=== PATIENT | female | born 1985 | race Caucasian/White ===

== ENCOUNTER 2019-10-04 20:21 | Emergency (ER) | payer MEDICAID, SELFPAY ==
[2019-10-04 20:27] VITALS: BP 136/94; PULSE 70; RESP 18; TEMP 36.7; O2SAT 100; BMI 36.8
--- NOTE | 2019-10-04 21:01 | PC.NURSE ---
Patient reports that she was cleaning her ears. Patient states that a tip of the Q-tip in your right ear. Patient reports that her daughter attempted to remove it but she believes she pushed it down lower. Patient denies any pain but has a lot of pressure.
--- NOTE | 2019-10-04 21:19 | ED_ITS ---
HPI - Ear Problem General: Chief complaint: Ear Stated complaint: Qtip in ear Time Seen by Provider: 10/04/19 21:02 Source: patient Mode of arrival: ambulatory Limitations: no limitations History of Present Illness: HPI Narrative: Patient comes in for evaluation after breaking a Q-tip off in her right ear canal. Patient appears well. Patient reports some mild discomfort. Associated symptoms: Reports ear or mastoid pain Review of Systems General: Reports: 10 or more systems reviewed and unremarkable except in HPI and below ENMT: Reports: ear pain PFSH ED PFSH: Statuses (acute, chronic, etc) shown below reflect problem list status as previously entered and may not be historically accurate Social History Smoking and tobacco status: never smoked Female Reproductive History: Date of last menstrual period: 09/14/19 Physical Exam Const: COMMON NORMALS: no apparent distress and oriented x3 GENERAL APPEARANCE: cooperative HENMT: COMMON NORMALS: normocephalic, external ears normal, TM's normal bilaterally and external nose normal HEAD & SCALP: normal to inspection and normocephalic FACE & SINUS: normal facial exam NOSE: external nose normal GENERAL EAR: hearing not grossly impaired EXTERNAL EAR: Yes external ears normal EXTERNAL AUDITORY CANAL: EAC abnormal (right ear canal foreign body) TYMPANIC MEMBRANE: TM's normal bilaterally MOUTH: oral and palatal mucosa normal THROAT: posterior oropharynx normal Eye: COMMON NORMALS: PERRL and EOMs intact bilaterally PUPIL: Yes PERRL Neck/C-Spine: COMMON NORMALS: full ROM and no lymphadenopathy Lymph: LYMPHATIC: no lymphedema noted Chest: COMMONS NORMALS: inspection of chest normal and palpation of chest normal Resp: COMMON NORMALS: normal respiratory effort and clear to auscultation bilaterally AUSCULTATION: clear to auscultation bilaterally Cardio: COMMON NORMALS: regular rate and regular rhythm RATE: regular rate RHYTHM: regular rhythm GI: COMMON NORMALS: normal to inspection, nondistended, normoactive bowel sounds and non-tender : COMMON NORMALS: Yes no CVA tenderness BLADDER/KIDNEY EXAM: Yes no CVA tenderness Back/Pelvis: COMMON NORMALS: no CVA tenderness and thoracic and lumbar spine normal to inspection Extremity: COMMON NORMALS: normal to inspection GENERAL: No edema Neuro: COMMON NORMALS: oriented x3, moves all extremities and no focal motor deficits Psych: COMMON NORMALS: mental status grossly normal and cooperative Skin: COMMON NORMALS: no rashes or lesions noted GENERAL SKIN EXAM: no rashes or lesions noted Procedures FB Removal Ear Location: ear canal (R) Foreign Body Suspected: other plastic (Q-tip) TM intact pre-procedure: yes Foreign Body Removed: yes Foreign Body Removal Technique: forceps Tympanic Membrane Intact Post Procedure: Yes Patient Tolerated Procedure: well Complications: none Course Vital Signs: Vital signs: Vital Signs Temperature 98.1 F 10/04/19 20:27 Pulse Rate 70 10/04/19 20:27 Respiratory Rate 18 10/04/19 20:27 Blood Pressure 136/94 10/04/19 20:27 Pulse Oximetry 100 10/04/19 20:27 MDM - Ear MDM Narrative: Medical decision making narrative: Patient comes in for foreign body in her right ear canal. On exam we note a cotton tip applicator piece in her right ear canal. Differential diagnosis includes foreign body in the ear, perforation tympanic membrane, barotrauma. Reviewed exam with patient recommended removal with forceps. Patient tolerated well. Success without any noticeable injury or complication noted. Reviewed post procedure care and need for follow-up. Patient reports understanding. Discharge Plan Discharge Patient Disposition: Home, Self-Care Clinical Impression: Foreign body in right ear, initial encounter Condition: Stable Discharge Orders: Discharge Order (Routine); Ordered 10/04/19 Ordered By: Noel Olivera Referrals: Laurel Conde DO [Primary Care Provider] - Discharge Diet: Usual diet Discharge Activity: Resume usual activity Patient Instructions: Ear Foreign Body (ED) Activity Restrictions/Additional Instructions: Monitor for fever or drainage Return to ER as needed Coding Level of Care Code ED Incident Response Analyst for David Stovall Exam Problem Focused
== END 2019-10-04 21:31 | disposition home or self-care (01) ==
PROVIDERS: Emergency Provider Nurse Practitioner Family; Family Provider Family Medicine; PCP Family Medicine
DX: T16.1XXA Foreign body in right ear, initial encounter (principal); X58.XXXA Exposure to other specified factors, initial encounter
CPT/HCPCS: 69200; 99281; 99282

== ENCOUNTER → 2019-11-21 08:02 | Outpatient (BNVA) | payer MEDICAID, SELFPAY | PROVIDERS: Family Provider Family Medicine; PCP Family Medicine; Visit Provider Specialist | DX: G43.711 Chronic migraine without aura, intractable, with status migrainosus (principal) | CPT/HCPCS: 99213 ==

== ENCOUNTER → 2019-11-28 13:21 | Outpatient (BNVA) | payer MEDICAID, SELFPAY | PROVIDERS: Family Provider Family Medicine; PCP Family Medicine; Visit Provider Anesthesiology | DX: M54.5 Low back pain (principal); M25.552 Pain in left hip; M79.652 Pain in left thigh; Z79.891 Long term (current) use of opiate analgesic | CPT/HCPCS: 99214 ==

== ENCOUNTER → 2019-12-27 09:42 | Outpatient (BNVA) | payer MEDICAID, SELFPAY | PROVIDERS: Family Provider Family Medicine; PCP Family Medicine; Visit Provider Obstetrics & Gynecology | DX: R32 Unspecified urinary incontinence (principal); N93.8 Other specified abnormal uterine and vaginal bleeding | CPT/HCPCS: 80053; 81000; 83001; 84443; 85025 ==

== ENCOUNTER 2020-01-02 13:26 | Emergency (ER) | payer MEDICAID, SELFPAY ==
[2020-01-02 13:33] VITALS: BP 143/101; PULSE 86; RESP 16; TEMP 36.7; O2SAT 95; BMI 37.4
--- NOTE | 2020-01-02 14:04 | W.ED.HA ---
HPI - Headache General: Chief Complaint: Headache Stated Complaint: headache Time Seen by Provider: 01/02/20 13:27 Source: patient Mode of arrival: ambulatory Limitations: no limitations History of Present Illness: HPI Narrative: woke up with ARROYO; increasingly worse. 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 Encounter for long-term (current) use of NSAIDs Encounter for long-term opiate analgesic use GERD (gastroesophageal reflux disease) Low back pain Surgical History H/O section H/O tubal ligation History of cholecystectomy History of D&C History of tonsillectomy Family History Mother Migraine Thyroid condition Grandfather Migraine maternal Father Seizure Son Seizure Social History Smoking and tobacco status: never smoked Alcohol intake: never History of recent travel: No Female Reproductive History: Date of last menstrual period: 09/14/19 Physical Exam Const: COMMON NORMALS: no apparent distress, oriented x3, no limitations and alert GENERAL APPEARANCE: cooperative and comfortable ORIENTATION/CONSCIOUSNESS: Yes awake, Yes oriented to person, Yes oriented to place and Yes oriented to time HENMT: COMMON NORMALS: normocephalic, head/scalp atraumatic, external ears normal, EAC's normal, TM's normal bilaterally and external nose normal HEAD & SCALP: normal to inspection, normocephalic and atraumatic FACE & SINUS: normal facial exam, sinuses nontender and face symmetric NOSE: external nose normal, nares normal and no nasal discharge EXTERNAL EAR: Yes external ears normal EXTERNAL AUDITORY CANAL: EAC's normal TYMPANIC MEMBRANE: TM's normal bilaterally MOUTH: oral and palatal mucosa normal, lip normal and tongue normal THROAT: posterior oropharynx normal, tonsils normal and uvula midline Eye: COMMON NORMALS: PERRL, EOMs intact bilaterally and conjunctivae normal GENERAL EYE: normal appearance of both eyes and normal light reflex EYELID: eyelids normal CONJUNCTIVA: Yes conjunctivae normal PUPIL: Yes PERRL EOM: Yes EOM abnormal DIRECT OPHTHALMOSCOPY: Yes normal light reflex Neck/C-Spine: COMMON NORMALS: full ROM, no lymphadenopathy, supple, no meningeal signs, no JVD and thyroid normal GENERAL: Yes normal visual inspection THYROID: thyroid normal CERVICAL SPINE: Yes cervical ROM normal and Yes normal cervical lordosis Lymph: LYMPHATIC: no lymphadenopathy noted Chest: COMMONS NORMALS: inspection of chest normal and palpation of chest normal Resp: COMMON NORMALS: normal respiratory effort, no retractions and clear to auscultation bilaterally AUSCULTATION: clear to auscultation bilaterally Cardio: COMMON NORMALS: no JVD, regular rate, regular rhythm, S1 normal heart sound, S2 normal heart sound, no gallops, no clicks, no murmurs, no rub and peripheral pulses 2+ throughout RATE: regular rate RHYTHM: regular rhythm HEART SOUNDS: S1 normal and S2 normal PERIPHERAL PULSES: pulses 2+ throughout GI: COMMON NORMALS: normal to inspection, nondistended, normoactive bowel sounds, soft to palpation, non-tender and no masses PALPATION: Yes soft : COMMON NORMALS: Yes no CVA tenderness and Yes external appearance normal BLADDER/KIDNEY EXAM: Yes no CVA tenderness Back/Pelvis: COMMON NORMALS: no CVA tenderness, thoracic and lumbar spine normal to inspection, no thoracic nor lumbar tenderness and thoraco-lumbar ROM normal Extremity: COMMON NORMALS: normal to inspection, full ROM, normal capillary refill, no joint enlargement, no clubbing, cyanosis or edema, no calf tenderness and no pedal edema GENERAL: Yes normal exam except as noted Neuro: COMMON NORMALS: oriented x3, moves all extremities, no focal motor deficits, no sensory deficits noted and gait normal SENSORIUM/ORIENTATION: Yes alert, Yes oriented to person, Yes oriented to place and Yes oriented to time MENINGEAL SIGNS: Yes no meningeal signs Psych: COMMON NORMALS: mental status grossly normal, thought process normal, cooperative, affect normal, speech normal and activity/motor behavior normal SPEECH: Yes normal speech THOUGHT PROCESS: normal thought process Skin: COMMON NORMALS: no rashes or lesions noted, no wounds and skin turgor normal GENERAL SKIN EXAM: no rashes or lesions noted and turgor normal Course ED course: Pt presents to ER with complaints of migraine since waking this am. Migraine cocktail ordered. Will reassess BP once pain is better controlled. No hx of HTN. Reevaluation(s): Reevaluation #1: Headache improved and BP back to baseline of pt and within normal range. Will proceed with DC. Time: 15:37 Vital Signs: Vital signs: Vital Signs Temperature 98.0 F 01/02/20 13:33 Pulse Rate 73 01/02/20 14:59 Respiratory Rate 16 01/02/20 14:59 Blood Pressure 124/85 01/02/20 14:59 Pulse Oximetry 99 01/02/20 14:59 Discharge Plan Discharge Patient Disposition: Home, Self-Care Clinical Impression: Migraine Condition: Stable Prescriptions: No Action acetaminophen-codeine [Tylenol-Codeine #4] 300-60 mg tablet 1 tab PO Q6H PRN (Reason: pain) Qty: 120 RF: 2 Aimovig Autoinjector 140 mg/mL auto-injector See Rx Instructions .ROUTE .COMPLEX RF: 0 dicyclomine 10 mg capsule 10 mg PO QID Qty: 120 RF: 0 omeprazole 20 mg capsule,delayed release(DR/EC) 20 mg PO DAILY Qty: 30 RF: 5 sumatriptan succinate [Imitrex] 100 mg tablet 100 mg PO Q2H PRN (Reason: migraine headache) Qty: 9 RF: 0 oxybutynin chloride 5 mg tablet 5 mg PO BID Qty: 60 RF: 0 Referrals: Laurel Conde DO [Primary Care Provider] - Discharge Diet: Usual diet Discharge Activity: Resume usual activity and Increase activity as tolerated Activity Restrictions/Additional Instructions: Follow up with your PCP as needed. Coding Level of Care Code ED Wine Pasteurizer for David Fwd Exam Comprehensive
[2020-01-02] MEDS: sodium chloride 0.9% 500 ML IV (14:54)
[2020-01-02] MEDS: ondansetron 2 mg/ML SDV 2 mL 4 MG IVP (14:56)
[2020-01-02] MEDS: diphenhydrAMINE 50 mg/mL SDV 1mL 25 MG IVP (14:57)
[2020-01-02] MEDS: dexamethasone 4 mg/mL INJ 8 MG IVP (14:58)
[2020-01-02 14:59] VITALS: BP 124/85; PULSE 73; RESP 16; O2SAT 99
[2020-01-02] MEDS: dihydroergotamine 1 mg/mL Inj IVP (15:13)
[2020-01-02 15:50] VITALS: BP 135/68; PULSE 71; RESP 16; O2SAT 96
== END 2020-01-02 15:50 | disposition home or self-care (01) ==
PROVIDERS: Emergency Provider Nurse Practitioner Family; Family Provider Family Medicine; PCP Family Medicine
DX: G43.909 Migraine, unspecified, not intractable, without status migrainosus (principal); K21.9 Gastro-esophageal reflux disease without esophagitis
CPT/HCPCS: 12345; 96361; 96374; 96375; 99283; J1100; J1110; J1200; J2405; J7040

== ENCOUNTER → 2020-01-04 08:52 | Outpatient (BNVA) | payer MEDICAID, SELFPAY | PROVIDERS: Family Provider Family Medicine; PCP Family Medicine; Visit Provider Specialist | DX: G43.711 Chronic migraine without aura, intractable, with status migrainosus (principal); R32 Unspecified urinary incontinence; N92.0 Excessive and frequent menstruation with regular cycle; N94.10 Unspecified dyspareunia | CPT/HCPCS: 64615; 76830; J0585 ==

== ENCOUNTER 2020-01-24 08:10 | Day surgery (SDC) | payer MEDICAID, SELFPAY ==
[2020-01-23 09:09] VITALS: BMI 37.8
[2020-01-24] VITALS (8 sets, daily range): BP systolic 112–131; BP diastolic 59–89; PULSE 67–81; RESP 12–22; TEMP 36.3–36.6; O2SAT 97–100
--- NOTE | 2020-01-24 08:18 | ANES.PREANE2 ---
Pre-Anesthetic Assessment Pre-Anesthetic Assessment: Height/Weight: Height 1.63 m Weight 99.79 kg Preop Diagnosis: Abnormal uterine bleeding: menorrhagia Proposed Procedure: Operation Date: 01/24/20 09:40 Proposed Procedures p Hysteroscopy w/ Ablation w/ Novasure 79682 N93.9(Not Applicable) - David Wooten MD Familial anesthetic complications: none Was Beta Kymberly taken within 24 hours: N/A Last intake: NPO > 8 hrs Social: Social History: No alcohol and No tobacco Exam: Pre-Anes Outpt Exam: alert, oriented x 3, clear to auscultation bilaterally and regular rate & rhythm Airway: Cervical ROM: WNL MP: 4 Dentition: Full History/ROS: No significant complaints GI: GI: GERD Metabolic: Metabolic: Morbid obesity Neuropsych: Neuropsych: Anxiety and ARROYO Anesthetic Plan: ASA status: 2 Anesthesia: MAC Risk of > 500 ml blood loss (7ml/kg in children): No PFSH Anesthesia PFSH: Medical History Anxiety 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 Encounter for long-term (current) use of NSAIDs Encounter for long-term opiate analgesic use GERD (gastroesophageal reflux disease) Low back pain Surgical History H/O section H/O tubal ligation History of cholecystectomy History of D&C History of tonsillectomy Family History Mother Migraine Thyroid condition Grandfather Migraine maternal Father Seizure Son Seizure Social History (Updated 01/22/20 @ 08:03 by Anna Ramirez RN) Smoking and tobacco status: never smoked Alcohol intake: never History of recent travel: No Female Reproductive History: Date of last menstrual period: 01/15/20 Data Anesthesia Cardiac Studies: No Data to Display
[2020-01-24 08:32] LABS: Add Urine Microscopic? NO
[2020-01-24 08:33] LABS: OR HCG Qualitative Urine Negative (Negative)
[2020-01-24] MEDS: sodium chloride 0.9% 1,000 ML 30 ML IV (09:02)
[2020-01-24 09:06] LABS: Basophils # 0.1 10^3/uL (0.0-0.1); Basophils % 0.7 %; Eosinophils # 0.1 10^3/uL (0.0-0.8); Eosinophils % 1.5 %; Hematocrit 42.8 % (37.0-47.0); Hemoglobin 13.1 g/dL (11.5-15.3); Lymphocytes # 2.1 10^3/uL (0.8-4.8); Lymphocytes % 28.1 %; Mean Corpuscular HGB Conc 30.6 g/dL (30.0-36.0); Mean Corpuscular Hemoglobin 24.1 pg (28.0-34.0); Mean Corpuscular Volume 78.7 fL (81-99); Mean Platelet Volume 10.9 fL (7.4-10.4); Monocytes # 0.6 10^3/uL (0.2-0.9); Monocytes % 7.3 %; Neutrophils # 4.7 10^3/uL (1.8-7.7); Nucleated Red Blood Cells % 0 %; Platelet Count 315 10^3/cmm (130-400); Red Blood Count 5.44 10^6/uL (4.1-5.3); Red Cell Distribution Width 16.2 % (12.1-15.1); White Blood Count 7.6 10^3/uL (4.0-10.0)
[2020-01-24 09:09] LABS: Bilirubin Urine Neg (NEGATIVE); Blood Urine Neg (Negative); Glucose Urine UA Norm (Normal); Ketones Urine Negative (Negative); Leukocyte Esterase Urine Negative (Negative); Nitrate Urine Negative (Negative); Protein Urine Neg (Negative); Urine Appearance Clear (CLEAR); Urine Color Yellow (Yellow); Urobilinogen Urine Norm (Negative); pH Urine 5 (5-7)
[2020-01-24 09:21] LABS: Carbon Dioxide 23 mmol/L (22-29); Chloride 102 mmol/L (98-107); Potassium 4.7 mmol/L (3.5-5.1); Sodium 137 mmol/L (136-145)
[2020-01-24 09:22] LABS: Anion Gap 16.7 (5-19); Blood Urea Nitrogen 13 mg/dL (6-20); Calcium 9.5 mg/dL (8.5-10.5); Creatinine Clr Calc Pharmacy 180.3247; Glomerular Filtration Rate 140.4 mL/min (90-130); Glucose 90 mg/dL (65-115); Osmolality Calculated 280 mOsm/kg (285-295)
[2020-01-24] MEDS: midazolam 1 mg/mL INJ 2 mL 2 MG IVP (10:54)
--- NOTE | 2020-01-24 11:13 | W.PM.OPSUD ---
Surgery/Procedure H&P Update DATE OF PROCEDURE: January 24, 2020 DATE H&P PERFORMED: 01/22/20 H&P UPDATE INFORMATION: I have reviewed H&P completed within last 30 days, I have examined patient prior to procedure and No changes to prior documentation PREOP DIAGNOSIS: Abnormal uterine bleeding: menorrhagia PLANNED PROCEDURE: Operation Date: 01/24/20 09:40 Proposed Procedures p Hysteroscopy w/ Ablation w/ Novasure 91419 N93.9(Not Applicable) - David Wooten MD
--- NOTE | 2020-01-24 12:14 | P.OP_ITS ---
Operative Report Date of procedure: January 24, 2020 Pre-op Diagnosis: Abnormal uterine bleeding: menorrhagia Post-op diagnosis: same Post-op Findings: Proliferative endometrium Procedure Done: Hysteroscopy with D&C. Endometrial ablation Specimens removed/disposition: Endocervical tissue Endometrial tissue Surgeon: David Wooten Anesthesia: General Estimated blood loss (mL): 5 IV fluids (mL): 600 Condition: stable Disposition: PACU Brief History: 34 y/o female with abnormal uterine bleeding unresponsive to medical treatment. Procedure: After informed consent, this is a 34-year-old patient who has completed childbearing; and she has a tubal ligation. The patient desired control for abnormal uterine bleeding. She declined other more conservative options such as oral contraceptive pills and Mirena intrauterine device. The patient desired an ablation. Risks of the surgery, which include risk of infection, bleeding, urine perforation; were discussed in detail with the patient. Patient was also informed that is not advised after having an ablation procedure done. Patient verbalized understanding of the risks, and informed consent was obtained. The patient was taken to the operating room where general anesthesia was administered. The patient was examined under anesthesia and found to have a normal uterus with normal adnexa. She was placed in the dorsal lithotomy position and prepped and draped in sterile fashion. A weighted speculum was placed in the vagina, and the anterior lip of cervix was grasped with the single toothed tenaculum. The uterus was then gently sounded to 10 cm. The length of the cervical canal was 4 cm and the canal was dilated to 8 mm with Sheryl?s dialators. and the 2.7 cm hysteroscope advanced gently to the uterine fundus while visualizing the monitor. Survey of the uterine cavity showed: fundus normal proliferative endometrium; left and right ostiums visualized, anterior wall with proliferative endometrium; and posterior wall with proliferative endometrium; the endocervical canal is normal. No intrauterine lesions noted. The hysteroscope was removed. A curette was advanced gently to the uterine fundus and rotated to clear the uterus. A sharp curettage wan then performed until a gritty texture was noted. There was minimal bleeding noted. The sterile Diagnostic [employer]? Disposable Device package was opened, connected and tested per instructions. It was found to be working properly. The device?s array is completely enclosed by the external sheath and the WIDTH dial reads approximately 0.5 cm. The appropriate cavity length settings was set 6.0 cm. Adjust and lock the cavity length setting feature on the Disposable Device to the value obtained. The Cervical Collar was fully retracted to its proximal position. Confirmed that the cervix was dilated to 8.0 mm. While maintaining a slight traction on the tenaculum to minimize the angle of the uterus. In-line with the axis of the uterus the Disposable Device was inserted transcervically into the uterine cavity and advance the device until the distal end of the sheath touched the fundus. The handles were slowly squeezed up to the point of increased resistance without locking it. The WIDTH dial read 2.5 cm. The Disposable Device handles were slowly squeezed together while gently moving the Disposable Device -0.5 cm to and from the fundus and rotating the handle of the Disposable Device 45? counterclockwise from the vertical plane and 45? clockwise from the vertical plane until the handles locked and confirmed the with dial read greater than 2.5 cm. The Disposable Device was gently moved using anterior, posterior and lateral movements. The Disposable Device was slightly pulled back until the WIDTH dial reading reduced by approximately 0.2-0.5 cm. While holding the tenaculum, the Disposable Device was advance to the fundus, maintaining slight forward pressure. The WIDTH dial read to the previous measurement. The Cervical Collar was slide forward until it forms a seal against the external cervical os. The value indicated on the width dial into the [employer]? RF Controller. In Automatic Mode the Cavity Integrity Assessment (ISADORA) procedure by stepping on the foot switch once was began. The cavity integrity assessment LED signaled the test has passed. The ablation cycle started was after the successful completion of the Cavity Integrity Assessment test. Termination of the ablation was automatic at 33 seconds at 83 rosales power. The Cervical Collar was slide it to its proximal position. The Disposable Device was unlock, holding the front fullerette stationary and pulling the rear handles backwards until the Closed Array indicator reads closed the Disposable Device was withdrawn from the uterine cavity. A hysteroscopy was performed post ablation to confirm therapy it was noted that endometrial cavity had been thoroughly ablated. Prior to this, a sharp curettage was performed, and endometrial curettings were also collected. Patient did have an endometrial biopsy in the office as well, which was negative. The hysteroscope and the tenaculum were removed with goad hemostasis noted. The patient tolerated the procedure well. The patient was taken to the recovery area in stable condition.
--- NOTE | 2020-01-24 12:22 | SUR.PHASEI ---
1220 PATIENT TO PACU AT THIS TIME FROM OR .RR EVEN AND UNLABORED. PLACED ON SIMPLE MASK AT 8L, SPO2 100%.
--- NOTE | 2020-01-24 12:45 | SUR.PHASEI ---
1241 PATIENT TO OPS AT THIS TIME. NO DISTRESS. DENIES PAIN. TOLERATING ICE CHIPS.
== END 2020-01-24 13:23 | disposition home or self-care (01) ==
PROVIDERS: PCP Family Medicine; Visit Provider Obstetrics & Gynecology
PROC: 0U598ZZ Destruction of Uterus, Via Natural or Artificial Opening Endoscopic (ICD-10-PCS; CPT 58563; principal; 2020-01-24 09:40)
DX: N93.9 Abnormal uterine and vaginal bleeding, unspecified (principal); N92.0 Excessive and frequent menstruation with regular cycle; K21.9 Gastro-esophageal reflux disease without esophagitis; E66.01 Morbid (severe) obesity due to excess calories; Z68.37 Body mass index [BMI] 37.0-37.9, adult
CPT/HCPCS: 58563; 12345; 36415; 80048; 81003; 84703; 85025; 86850; 86870; 86900; 86920; 88305; 96365; 96374; J0131; J0690; J2001; J2250; J2704; J3010; J7030

== ENCOUNTER → 2020-02-20 10:59 | Outpatient (BNVA) | payer MEDICAID, SELFPAY | PROVIDERS: PCP Family Medicine; Visit Provider Anesthesiology | DX: M54.42 Lumbago with sciatica, left side (principal); Z79.891 Long term (current) use of opiate analgesic | CPT/HCPCS: 99213; 99214 ==

== ENCOUNTER 2020-03-12 19:44 | Emergency (ER) | payer MEDICAID, SELFPAY ==
--- NOTE | 2020-03-12 19:47 | XR_ITS ---
WS: [id number] RIGHT HAND: 3 VIEW(S) TECHNIQUE: PA, oblique and lateral. HISTORY: injury COMPARISON: None available. No acute fracture or dislocation. No soft tissue or bone abnormality. XR/XR hand RT min 3V* [id number] IMPRESSION: Normal RIGHT hand.
[2020-03-12 19:49] VITALS: BP 144/92; PULSE 89; RESP 18; TEMP 36.6; O2SAT 97; BMI 37.4
[2020-03-12 20:57] VITALS: PULSE 77
--- NOTE | 2020-03-12 21:00 | ED_ITS ---
HPI - Extremity Problem General: Chief complaint: Extremity Injury, Upper Stated complaint: right hand injury Time Seen by Provider: 03/12/20 20:55 Source: patient Mode of arrival: ambulatory Limitations: no limitations History of Present Illness: HPI Narrative: Tanisha is a nice 34-year-old female who comes in complaining of right hand pain. About an hour ago she accidentally caught her hand in between the car door and the frame. She has pain primarily over the carpal bones of her hand. She denies any numbness, tingling or weakness. Patient is refusing to remove her rings as she does not want to damage them and does not want to try to remove them at this time. She denies any pain in the affected areas. Associated symptoms: Deny chest pain, fever(s) or rash Review of Systems Const: Denies: fever(s) Eyes: Denies: change in vision ENMT: Denies: throat pain Card: Denies: chest pain, palpitations, syncope, pre-syncope or dyspnea on exertion Resp: Denies: dyspnea, productive cough or non-productive cough GI: Denies: abdominal pain, nausea, vomiting or diarrhea : Denies: flank pain, dysuria, urinary frequency or urinary urgency Musc: Denies: neck pain or back pain Skin/Breast: Denies: rash or pruritus Neuro: Denies: headache(s), numbness in extremities, weakness in extremities or dizziness Joel/Lymph: Denies: easy bruising or easy bleeding All/Imm: Denies: urticaria PFSH ED PFSH: Medical History Anxiety 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 Encounter for long-term (current) use of NSAIDs Encounter for long-term opiate analgesic use GERD (gastroesophageal reflux disease) Low back pain Surgical History H/O section H/O tubal ligation History of cholecystectomy History of D&C History of tonsillectomy Family History Mother Migraine Thyroid condition Grandfather Migraine maternal Father Seizure Son Seizure Social History Smoking and tobacco status: never smoked Alcohol intake: never Female Reproductive History: Date of last menstrual period: 03/07/20 Physical Exam Const: COMMON NORMALS: no acute distress, patient oriented x3, no limitations, healthy appearing and well nourished GENERAL APPEARANCE: cooperative, well kempt and well developed HENMT: COMMON NORMALS: normocephalic, atraumatic, external ears normal, EAC's normal and Normal external nose present HEAD & SCALP: normal to inspection, normocephalic and atraumatic FACE & SINUS: normal facial exam and face symmetric NOSE: Normal external nose present and Normal nares present EXTERNAL EAR: Yes external ears normal EXTERNAL AUDITORY CANAL: EAC's normal MOUTH: Normal oral and palatal mucosa present, lip normal and tongue normal Eye: COMMON NORMALS: Equal, round and reactive pupils present and conjunctivae normal GENERAL EYE: appearance normal, both eyes and all related structures ALIGNMENT: Yes alignment normal PERIORBITAL: periorbital findings normal EYELID: eyelids normal CONJUNCTIVA: Yes conjunctivae normal SCLERA: sclerae normal PUPIL: Yes Equal, round and reactive pupils present Neck/C-Spine: COMMON NORMALS: full ROM, no lymphadenopathy, supple, no meningeal signs and no JVD GENERAL: Yes normal visual inspection and Yes trachea midline Chest: COMMONS NORMALS: normal inspection of the chest and normal palpation of entire chest wall Resp: COMMON NORMALS: normal respiratory effort, No retractions and No use of accessory muscles EFFORT & INSPECTION: Yes able to speak in complete sentences and Yes symmetric chest movement AUSCULTATION: no crackles, no rales, no rhonchi and no wheezes Cardio: COMMON NORMALS: no JVD, regular rate, regular rhythm, S1 normal heart sound present and S2 normal heart sound present RATE: regular rate RHYTHM: regular rhythm HEART SOUNDS: S1 normal heart sound present, S2 normal heart sound present, no click, no gallops, no murmurs, no rubs and abnormal split S2 GI: COMMON NORMALS: Soft to palpation and No hepatosplenomegaly present PALPATION: Yes Soft to palpation, No Tenderness to palpation present (GI), No Guarding due to palpation present (GI), No Rigid due to palpation, Yes No he patosplenomegaly present, No Hernia present, No Palpable mass present and No Pulsatile mass present : COMMON NORMALS: Yes no CVA tenderness BLADDER/KIDNEY EXAM: Yes no CVA tenderness EXTERNAL FEMALE EXAM: No Hernia present Back/Pelvis: COMMON NORMALS: no CVA tenderness, thoracic and lumbar spine normal to inspection, no thoracic nor lumbar tenderness and thoraco-lumbar ROM normal Extremity: COMMON NORMALS: full ROM, capillary refill normal, no joint enlargement and no calf tenderness NARRATIVE EXTREMITY EXAM: Right hand with mild swelling primarily over the thenar eminence. Patient refuses to remove rings for x-ray. Neurovascular intact to all fingers. Range of motion normal. Neuro: COMMON NORMALS: patient oriented x3, CN's II-XII intact bilaterally, moves all extremities, no focal motor deficits and no sensory deficits noted MENINGEAL SIGNS: Yes no meningeal signs SPEECH: speech normal Psych: COMMON NORMALS: mental status grossly normal, Normal thought process present, cooperative, normal affect, speech normal and activity/motor behavior normal APPEARANCE: Yes well kempt SPEECH: Yes normal speech THOUGHT PROCESS: Normal thought process present Skin: COMMON NORMALS: no rashes or lesions noted, turgor normal, no jaundice, no petechiae and no mottling GENERAL SKIN EXAM: no rashes or lesions noted and turgor normal Course Vital Signs: Vital signs: Vital Signs Temperature 97.9 F 03/12/20 19:49 Pulse Rate 77 03/12/20 20:57 Respiratory Rate 18 03/12/20 19:49 Blood Pressure 144/92 03/12/20 19:49 Pulse Oximetry 97 03/12/20 19:49 MDM - Extremity (Nontraumatic) MDM Narrative: Medical decision making narrative: The patient has refused to remove her rings for the x-ray. She states she has no pain in the affected area. She does have some swelling and I have informed her that if the swelling extends to her fingers it could risk necrosis of her fingers but she refuses to try to remove them or let us remove them. I see no evidence of fracture on her x-ray. I see no sign of compartment syndrome or underlying fracture. She does agree to return if her symptoms worsen but at this time she is satisfied that there are no fractures and would like to go home. The patient was warned but she was also welcomed to return. Discharge Plan Discharge Patient Disposition: Home, Self-Care Clinical Impression: Contusion of hand Qualifiers: Encounter type: initial encounter Laterality: right Qualified Code(s): S60.221A - Contusion of right hand, initial encounter Condition: Stable Prescriptions: No Action dihydroergotamine 0.5 mg/pump act. (4 mg/mL) spray,non-aerosol 1 spray INTRANASAL .at onset of headache RF: 0 dicyclomine 10 mg capsule 10 mg PO QID Qty: 120 RF: 0 omeprazole 20 mg capsule,delayed release(DR/EC) 20 mg PO DAILY Qty: 30 RF: 5 oxybutynin chloride 5 mg tablet 5 mg PO BID Qty: 60 RF: 3 acetaminophen-codeine 300-60 mg tablet 1 tab PO Q6H PRN (Reason: pain) Qty: 120 RF: 2 sumatriptan succinate [Imitrex] 100 mg tablet 100 mg PO Q2H PRN (Reason: migraine headache) Qty: 9 RF: 4 Discharge Orders: Discharge Order (Routine); Ordered 03/12/20 Ordered By: Fide Antunez Referrals: Laurel Conde DO [Primary Care Provider] - Quentin Walter MD [Physician] - 1-3 days Discharge Diet: Usual diet Discharge Activity: Limit activity as instructed Patient Instructions: Contusion in Adults (ED) Activity Restrictions/Additional Instructions: Please return to the ER immediately for any of the signs or symptoms listed on your discharge instruction sheets, worsening/changing of your symptoms, you are not getting better as quickly as expected, or for ANY other cause or concerns. I have recommended we remove your ratings but you have declined, if you develop pain, increased swelling or have any concerns you are encouraged and more than welcome to return to the ER for further evaluation and care including removal of your rings. Keep your hand elevated and apply ice 3-4 times a day but do not apply ice directly to the skin. If we have missed anything on your x-rays you will be notified within 24 hours and we will have you return to the ER for reevaluation. Be certain to use your splint at all times. Take Tylenol at home for pain. Discharge Date/Time: 03/12/20 21:18 Coding Level of Care Code ED Articulation Officer for Francisc[facility] Fwd Exam Comprehensive
== END 2020-03-12 21:18 | disposition home or self-care (01) ==
PROVIDERS: Emergency Provider Emergency Medicine; PCP Family Medicine
DX: S60.221A Contusion of right hand, initial encounter (principal); W23.0XXA Caught, crushed, jammed, or pinched between moving objects, initial encounter
CPT/HCPCS: 12345; 29125; 73130; 99281; 99283

== ENCOUNTER → 2020-03-28 09:16 | Outpatient (BNVA) | payer MEDICAID, SELFPAY | PROVIDERS: Family Provider Family Medicine; PCP Family Medicine; Visit Provider Specialist | DX: G43.711 Chronic migraine without aura, intractable, with status migrainosus (principal) | CPT/HCPCS: 64615; J0585 ==

== ENCOUNTER → 2020-05-14 11:49 | Outpatient (BNVA) | payer MEDICAID, SELFPAY | PROVIDERS: Family Provider Family Medicine; PCP Family Medicine; Visit Provider Nurse Practitioner Family | DX: R50.9 Fever, unspecified (principal); Z20.828 Contact with and (suspected) exposure to other viral communicable diseases | CPT/HCPCS: 87635 ==

== ENCOUNTER → 2020-05-21 10:32 | Outpatient (BNVA) | payer MEDICAID, SELFPAY | PROVIDERS: Family Provider Family Medicine; PCP Family Medicine; Visit Provider Family Medicine | DX: E55.9 Vitamin D deficiency, unspecified (principal); Z86.39 Personal history of other endocrine, nutritional and metabolic disease; K21.9 Gastro-esophageal reflux disease without esophagitis; Z68.38 Body mass index [BMI] 38.0-38.9, adult; Z71.89 Other specified counseling | CPT/HCPCS: 82306 ==

== ENCOUNTER → 2020-06-04 09:42 | Outpatient (BNVA) | payer MEDICAID, SELFPAY | PROVIDERS: PCP Family Medicine; Visit Provider Nurse Practitioner | DX: M54.42 Lumbago with sciatica, left side (principal); Z79.891 Long term (current) use of opiate analgesic | CPT/HCPCS: 99213 ==

== ENCOUNTER → 2020-06-05 15:46 | Outpatient (BNVA) | payer MEDICAID, SELFPAY | PROVIDERS: PCP Family Medicine; Visit Provider Obstetrics & Gynecology | DX: N93.9 Abnormal uterine and vaginal bleeding, unspecified (principal) | CPT/HCPCS: 76830 ==

== ENCOUNTER → 2020-06-25 09:02 | Outpatient (BNVA) | payer MEDICAID, SELFPAY | PROVIDERS: PCP Family Medicine; Visit Provider Family Medicine | DX: E55.9 Vitamin D deficiency, unspecified (principal); Z86.39 Personal history of other endocrine, nutritional and metabolic disease; K21.9 Gastro-esophageal reflux disease without esophagitis | CPT/HCPCS: 82306 ==

== ENCOUNTER → 2020-07-25 10:04 | Outpatient (BNVA) | payer MEDICAID, SELFPAY | PROVIDERS: PCP Family Medicine; Visit Provider Specialist | DX: G43.711 Chronic migraine without aura, intractable, with status migrainosus (principal) | CPT/HCPCS: 64615; J0585 ==

== ENCOUNTER → 2020-08-28 09:07 | Outpatient (BNVA) | payer MEDICAID, SELFPAY | PROVIDERS: PCP Family Medicine; Visit Provider Nurse Practitioner | DX: M54.5 Low back pain (principal); Z79.891 Long term (current) use of opiate analgesic | CPT/HCPCS: 99213 ==

== ENCOUNTER → 2020-09-04 09:47 | Outpatient (BNVA) | payer MEDICAID, SELFPAY | PROVIDERS: PCP Family Medicine; Visit Provider Family Medicine | DX: L30.1 Dyshidrosis [pompholyx] (principal); G25.81 Restless legs syndrome | CPT/HCPCS: 82728; 83550; 85025 ==

== ENCOUNTER → 2020-10-17 10:13 | Outpatient (BNVA) | payer BC, MEDICAID, SELFPAY | PROVIDERS: PCP Family Medicine; Visit Provider Specialist | DX: G43.711 Chronic migraine without aura, intractable, with status migrainosus (principal) | CPT/HCPCS: 64615; J0585 ==

== ENCOUNTER 2020-11-07 07:56 | Emergency (ER) | payer BC, MEDICAID, SELFPAY ==
[2020-11-07 07:57] VITALS: BP 131/95; PULSE 92; RESP 18; TEMP 36.6; O2SAT 97; BMI 36.0
--- NOTE | 2020-11-07 08:00 | W.ED.ALLEREA ---
HPI - Allergic Reaction General: Chief complaint: Allergic Reaction Stated complaint: POSS ALLERGIC REACTION/FACE SWELLING Time Seen by Provider: 11/07/20 07:57 Source: patient Mode of arrival: ambulatory Limitations: no limitations History of Present Illness: HPI narrative: Patient is a 35-year-old female here for evaluation of a possible allergic reaction with facial swelling. Patient tells me last night she had a migraine and took her Imitrex. She states that did not alleviate her headache so she then took her stronger medication that she has for her migraine. She states a few hours later she began noticing facial swelling. 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 Patient states she took Pepcid and Benadryl last night without much relief. She states this morning she began feeling like her throat was scratchy so decided to come into the emergency department for evaluation. Patient denies difficulty breathing or trouble swallowing. No rash. Patient has taken both of these medications previously without reaction. complaint: allergic reaction and facial swelling Onset (ago): hour(s) Exposure: unknown and medication (possibly ) Associated symptoms: Deny nausea or vomiting Severity: mild Treatment prior to arrival: benadryl (last night) Previous Allergic Reaction History: angioedema Review of Systems Const: Denies: fever(s), chills, body aches, fatigue or malaise Eyes: Denies: change in vision, blurry vision, photophobia, floaters or seeing flashes ENMT: Reports: other (reports facial swelling); Denies: throat pain, odynophagia, oral sores, disequilibrium, nasal discharge, nasal congestion or sinus pain Card: Denies: chest pain, palpitations, irregular heart rhythm, edema, swelling of feet/ankles, lightheadedness, syncope, pre-syncope, dyspnea on exertion or orthopnea Resp: Denies: dyspnea GI: Denies: nausea or vomiting Musc: Denies: neck pain, back pain, extremity pain, extremity swelling, joint pain or joint swelling Skin/Breast: Denies: rash Neuro: Denies: headache(s), numbness in extremities, weakness in extremities or sensory changes PFSH ED PFSH: Medical History Anxiety 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 Encounter for long-term (current) use of NSAIDs Encounter for long-term opiate analgesic use GERD (gastroesophageal reflux disease) History of hysteroscopy Hysteroscopy with D&C on 01/24/2020- performed by Dr. Wooten at [facility] Low back pain Status post hysteroscopy (01/24/20) [place], [place]. Dr. David Wooten. Pre-op Diagnosis: Abnormal uterine bleeding: menorrhagia Post-op diagnosis: same Post-op Findings: Proliferative endometrium Procedure Done: Hysteroscopy with D&C. Endometrial ablation Surgical History H/O section H/O tubal ligation History of cholecystectomy History of D&C History of tonsillectomy Family History Mother Migraine Thyroid condition Grandfather Migraine maternal Father Seizure Son Seizure Social History Smoking and tobacco status: never smoked Alcohol intake: never History of recent travel: No Female Reproductive History: Date of last menstrual period: 03/07/20 Physical Exam Const: COMMON NORMALS: no acute distress, average body habitus, patient oriented x3, no limitations, healthy appearing, alert and well nourished GENERAL APPEARANCE: cooperative ORIENTATION/CONSCIOUSNESS: Yes awake, Yes oriented to person, Yes oriented to place and Yes oriented to time HENMT: COMMON NORMALS: normocephalic, atraumatic, hearing grossly normal bilaterally, external ears normal, EAC's normal, TM's normal bilaterally, Normal external nose present, Normal nasal mucous membranes and turbinates present, moist oral mucous membranes, oropharynx normal, dentition normal and gingiva normal HEAD & SCALP: normal to inspection, normocephalic and atraumatic FACE & SINUS: sinuses nontender and other (mild facial swelling) NOSE: Normal external nose present and Normal nasal mucous membranes and turbinates present EXTERNAL EAR: Yes external ears normal EXTERNAL AUDITORY CANAL: EAC's normal TYMPANIC MEMBRANE: TM's normal bilaterally MOUTH: Normal oral and palatal mucosa present, lip normal and tongue normal THROAT: posterior oropharynx normal, tonsils normal and uvula midline OTHER: no lip, tongue, or intraoral swelling Eye: COMMON NORMALS: Equal, round and reactive pupils present and EOMs intact bilaterally GENERAL EYE: appearance normal, both eyes and all related structures PUPIL: Yes Equal, round and reactive pupils present Neck/C-Spine: COMMON NORMALS: full ROM, no lymphadenopathy and no meningeal signs Resp: COMMON NORMALS: normal respiratory effort and clear to auscultation bilaterally AUSCULTATION: clear to auscultation bilaterally Cardio: COMMON NORMALS: regular rate and regular rhythm RATE: regular rate RHYTHM: regular rhythm Neuro: PRESTON COMA SCALE: document GCS findings [place] coma scale eye opening: Spontaneous [place] coma scale verbal response: Orientated [place] coma scale motor response: Obey commands [place] coma scale total score: 15 COMMON NORMALS: patient oriented x3, CN's II-XII intact bilaterally, moves all extremities, no focal motor deficits, no sensory deficits noted and gait normal SENSORIUM/ORIENTATION: Yes alert, Yes oriented to person, Yes oriented to place and Yes oriented to time MENINGEAL SIGNS: Yes no meningeal signs Skin: COMMON NORMALS: no rashes or lesions noted GENERAL SKIN EXAM: no rashes or lesions noted Course Vital Signs: Vital signs: Vital Signs Temperature 97.9 F 11/07/20 07:57 Pulse Rate 82 11/07/20 08:55 Respiratory Rate 22 H 11/07/20 08:55 Blood Pressure 118/86 11/07/20 08:55 Pulse Oximetry 98 11/07/20 08:55 MDM - Allergic Reaction MDM Narrative: Medical decision making narrative: Patient feeling better after meds. No signs/symptoms of anaphylaxis. She is stable for DC with return to ED precautions. Discharge Plan Discharge Patient Disposition: Home Clinical Impression: Allergic reaction Qualifiers: Encounter type: initial encounter Qualified Code(s): T78.40XA - Allergy, unspecified, initial encounter Condition: Stable Prescriptions: No Action dihydroergotamine 0.5 mg/pump act. (4 mg/mL) spray,non-aerosol 1 spray INTRANASAL .at onset of headache RF: 0 medroxyprogesterone [Depo-Provera] 150 mg/mL suspension 150 mg IM .every 3 months Qty: 1 RF: 3 tizanidine 4 mg tablet 4 mg PO BID PRN (Reason: muscle spasticity) 30 Days Qty: 60 RF: 2 acetaminophen-codeine 300-60 mg tablet 1 tab PO Q6H PRN (Reason: pain) Qty: 120 RF: 2 triamcinolone acetonide 0.1 % cream 1 applic topical BID Qty: 453.6 RF: 0 omeprazole 40 mg capsule,delayed release(DR/EC) 40 mg PO DAILY Qty: 90 RF: 1 sumatriptan succinate [Imitrex] 100 mg tablet 100 mg PO Q2H PRN (Reason: migraine headache) Qty: 9 RF: 1 Discharge Orders: Discharge ED (Routine); Ordered 11/07/20 Ordered By: Nicki De Referrals: Laurel Conde DO [Primary Care Provider] - Patient Instructions: Allergic Reaction, Anaphylaxis (ED), Angioedema (ED) Activity Restrictions/Additional Instructions: Please return to the emergency department for worsening swelling, tongue/lip swelling, difficulty breathing, difficulty swallowing, difficulty controlling your saliva, or any other concerns you may have. Coding Level of Care Code ED Spool Sander for Franciscog Fwd Exam Comprehensive
[2020-11-07 08:09] VITALS: O2SAT 98
[2020-11-07] MEDS: famotidine 20 mg/2 mL INJ 40 MG IVP (08:25)
[2020-11-07] MEDS: diphenhydrAMINE 50 mg/mL SDV 1mL IVP (08:25)
[2020-11-07 08:55] VITALS: BP 118/86; PULSE 82; RESP 22; O2SAT 98
[2020-11-07 09:36] VITALS: BP 113/88; PULSE 71; RESP 16; O2SAT 97
== END 2020-11-07 09:37 | disposition home or self-care (01) ==
PROVIDERS: Emergency Provider Physician Assistant; PCP Family Medicine
DX: T78.40XA Allergy, unspecified, initial encounter (principal)
CPT/HCPCS: 96374; 96375; 99283; J1200; J2930; J3490

== ENCOUNTER → 2020-11-13 09:32 | Outpatient (BNVA) | payer BC, MEDICAID, SELFPAY | PROVIDERS: PCP Family Medicine; Visit Provider Anesthesiology | DX: G89.29 Other chronic pain (principal); M54.42 Lumbago with sciatica, left side; Z79.891 Long term (current) use of opiate analgesic | CPT/HCPCS: 99213 ==

== ENCOUNTER → 2020-11-15 12:33 | Outpatient (BNVA) | payer BC, MEDICAID, SELFPAY | PROVIDERS: PCP Family Medicine; Visit Provider Obstetrics & Gynecology | DX: N93.9 Abnormal uterine and vaginal bleeding, unspecified (principal) | CPT/HCPCS: 87635 ==

== ENCOUNTER 2020-11-20 12:20 | Observation (INO) | payer BC, MEDICAID, SELFPAY ==
[2020-11-18 10:37] VITALS: BMI 36.0
[2020-11-18 11:12] LABS: Basophils # 0.1 10^3/uL (0.0-0.1); Eosinophils # 0.1 10^3/uL (0.0-0.8); Eosinophils % 1.2 %; Hematocrit 43.9 % (37.0-47.0); Hemoglobin 13.9 g/dL (11.5-15.3); Lymphocytes # 1.5 10^3/uL (0.8-4.8); Lymphocytes % 29.6 %; Mean Corpuscular HGB Conc 31.7 g/dL (30.0-36.0); Mean Corpuscular Hemoglobin 24.9 pg (28.0-34.0); Mean Corpuscular Volume 78.7 fL (81-99); Mean Platelet Volume 10.3 fL (7.4-10.4); Monocytes # 0.4 10^3/uL (0.2-0.9); Neutrophils # 3.16 10^3/uL (1.8-7.7); Nucleated Red Blood Cells % 0 %; Platelet Count 255 10^3/cmm (130-400); Red Blood Count 5.58 10^6/uL (4.1-5.3); Red Cell Distribution Width 16.4 % (12.1-15.1); White Blood Count 5.2 10^3/uL (4.0-10.0)
[2020-11-18 11:22] LABS: Add Urine Microscopic? YES; Bacteria Urine 1+ /hpf; Bilirubin Urine Neg (Negative); Blood Urine Neg (Negative); Glucose Urine UA Norm (Normal); Ketones Urine Negative (Negative); Leukocyte Esterase Urine Negative (Negative); Nitrate Urine Negative (Negative); Protein Urine Neg (Negative); RBC Urine 0-4 /hpf (0-2); Specific Gravity, Urine 1.025 (1.005-1.030); Urine Appearance Cloudy (CLEAR); Urine Color Yellow (Yellow); Urobilinogen Urine Norm (Negative); WBC Urine 0-4 /hpf (0-5); pH Urine 5 (5-7)
[2020-11-18 11:23] LABS: OR HCG Qualitative Urine Negative (Negative)
[2020-11-18 11:31] LABS: Alanine Aminotransferase 20 U/L (0-33); Albumin Level 4.2 g/dL (3.5-5.2); Alkaline Phosphatase 103 IU/L (35-105); Anion Gap 12.8 (5-19); Aspartate Amino Transferase 17 U/L (0-32); Blood Urea Nitrogen 11 mg/dL (6-20); Calcium 9.2 mg/dL (8.5-10.5); Carbon Dioxide 21 mmol/L (22-29); Chloride 103 mmol/L (98-107); Globulin 3.2 g/dL (1.3-4.6); Glomerular Filtration Rate 113.1 mL/min (90-130); Glucose 97 mg/dL (65-115); Osmolality Calculated 275 mOsm/kg (285-295); Potassium 3.8 mmol/L (3.5-5.1); Sodium 133 mmol/L (136-145); Total Bilirubin 0.5 mg/dL (0.15-1.2); Total Protein 7.4 g/dL (6.6-8.7)
--- NOTE | 2020-11-18 11:56 | ANES.PREANE2 ---
Pre-Anesthetic Assessment Pre-Anesthetic Assessment: Height/Weight: Height 1.63 m Weight 95.254 kg Preop Diagnosis: Abnormal uterine bleeding, chronic pelvic pain Proposed Procedure: Operation Date: 11/20/20 09:00 Proposed Procedures p Laparoscopic Assist Vaginal Hystectomy 31091 n93.9(Not Applicable) - David Wooten MD Was Beta Kymberly taken within 24 hours: N/A Was Clonidine taken within 24 hours: N/A Social: Social History: No alcohol and No tobacco Exam: Pre-Anes Outpt Exam: alert, oriented x 3, clear to auscultation bilaterally and regular rate & rhythm Airway: Submandibular: WNL Cervical ROM: WNL MP: 2 Dentition: Full GI: GI: GERD Metabolic: Metabolic: Morbid obesity Musc/skel: Musc/skel: Lower Back Pain (Chronic pain/opioid) Neuropsych: Neuropsych: Anxiety Anesthetic Plan: ASA status: 2 Anesthesia: General Risk of > 500 ml blood loss (7ml/kg in children): No PFSH Anesthesia PFSH: Medical History Anxiety 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 Chronic low back pain Encounter for long-term (current) use of NSAIDs Encounter for long-term opiate analgesic use GERD (gastroesophageal reflux disease) History of hysteroscopy Hysteroscopy with D&C on 01/24/2020- performed by Dr. Wooten at [facility] Low back pain Status post hysteroscopy (01/24/20) [facility], [place], [place]. Dr. David Wooten. Pre-op Diagnosis: Abnormal uterine bleeding: menorrhagia Post-op diagnosis: same Post-op Findings: Proliferative endometrium Procedure Done: Hysteroscopy with D&C. Endometrial ablation Surgical History H/O section H/O tubal ligation History of cholecystectomy History of D&C History of tonsillectomy Family History (Updated 11/18/20 @ 08:19 by Anna Ramirez, DIOMEDES) Mother Migraine Thyroid condition Grandfather Migraine maternal Father Seizure Son Seizure Sister Heart disease Grandmother Ovarian cancer paternal, 50's Denies family history of Colon cancer Diabetes Clotting disorder Hyperlipidemia Breast cancer Anesthesia complication Bleeding disorder Hypertension Uterine cancer Stroke Social History (Updated 03/15/21 @ 08:18 by Anna Ramirez RN) Smoking and tobacco status: never smoked Alcohol intake: never Substance/Drug Use: never History of recent travel: No Female Reproductive History: Date of last menstrual period: 08/09/20 Data Anesthesia CBC & Chem 7: 11/18/20 10:50 11/18/20 10:50 Other Labs: Laboratory Results - last 48 hr 11/18/20 11/18/20 11/18/20 10:50 10:50 10:50 WBC 5.2 RBC 5.58 H Hgb 13.9 Hct 43.9 MCV 78.7 L MCH 24.9 L MCHC 31.7 RDW 16.4 H Plt Count 255 MPV 10.3 Neut % (Auto) 61.0 Lymph % (Auto) 29.6 [place] % (Auto) 7.0 Eos % (Auto) 1.2 Baso % (Auto) 1.0 Neut # (Auto) 3.16 Lymph # (Auto) 1.5 [place] # (Auto) 0.4 Eos # (Auto) 0.1 Baso # (Auto) 0.1 Nucleated RBC % (auto) 0 Nucleated RBCs # 0.0 Sodium Potassium Chloride Carbon Dioxide Anion Gap BUN Creatinine GFR Calculation Glucose Calculated Osmolality Calcium Total Bilirubin AST ALT Alkaline Phosphatase Total Protein Albumin Globulin Urine Color Yellow Urine Appearance Cloudy Urine pH 5 Ur Specific [place] 1.025 Urine Protein Neg Urine Glucose (UA) Norm Urine Ketones Negative Urine Blood Neg Urine Nitrate Negative Urine Bilirubin Neg Urine Urobilinogen Norm Ur Leukocyte Esterase Negative Urine RBC 0-4 H Urine WBC 0-4 H Ur Squamous Epith Cells 10-15 H Amorphous Sediment Not Reportable Urine Bacteria 1+ H Urine HCG, Qual Negative 11/18/20 10:50 WBC RBC Hgb Hct MCV MCH MCHC RDW Plt Count MPV Neut % (Auto) Lymph % (Auto) [place] % (Auto) Eos % (Auto) Baso % (Auto) Neut # (Auto) Lymph # (Auto) [place] # (Auto) Eos # (Auto) Baso # (Auto) Nucleated RBC % (auto) Nucleated RBCs # Sodium 133 L Potassium 3.8 Chloride 103 Carbon Dioxide 21 L Anion Gap 12.8 BUN 11 Creatinine 0.6 GFR Calculation 113.1 Glucose 97 Calculated Osmolality 275 L Calcium 9.2 Total Bilirubin 0.5 AST 17 ALT 20 Alkaline Phosphatase 103 Total Protein 7.4 Albumin 4.2 Globulin 3.2 Urine Color Urine Appearance Urine pH Ur Specific [place] Urine Protein Urine Glucose (UA) Urine Ketones Urine Blood Urine Nitrate Urine Bilirubin Urine Urobilinogen Ur Leukocyte Esterase Urine RBC Urine WBC Ur Squamous Epith Cells Amorphous Sediment Urine Bacteria Urine HCG, Qual Cardiac Studies: No Data to Display
[2020-11-20] VITALS (20 sets, daily range): BP systolic 101–139; BP diastolic 65–109; PULSE 61–96; RESP 10–22; TEMP 36.7–37.3; O2SAT 95–100; BMI 36.0
--- NOTE | 2020-11-20 07:51 | P.ANESUD_ITS ---
Pre-Anesthetic Update Pre-Anesthetic Assessment: Date of Surgery/Procedure: 11/20/20 Preop Narcisa gnosis: Abnormal uterine bleeding, chronic pelvic pain Proposed Procedure: Operation Date: 11/20/20 08:40 Proposed Procedures p Laparoscopic Assist Vaginal Hystectomy [id number] n93.9(Not Applicable) - David Wooten MD Any changes to Pre-Anesthetic Assessment?: No Labs Last 48hrs: Laboratory Results - last 48 hr 11/18/20 11/18/20 11/18/20 10:50 10:50 10:50 WBC 5.2 RBC 5.58 H Hgb 13.9 Hct 43.9 MCV 78.7 L MCH 24.9 L MCHC 31.7 RDW 16.4 H Plt Count 255 MPV 10.3 Neut % (Auto) 61.0 Lymph % (Auto) 29.6 [place] % (Auto) 7.0 Eos % (Auto) 1.2 Baso % (Auto) 1.0 Neut # (Auto) 3.16 Lymph # (Auto) 1.5 [place] # (Auto) 0.4 Eos # (Auto) 0.1 Baso # (Auto) 0.1 Nucleated RBC % (a uto) 0 Nucleated RBCs # 0.0 Sodium Potassium Chloride Carbon Dioxide Anion Gap BUN Creatinine GFR Calculation Glucose Calculated Osmolal ity Calcium Total Bilirubin AST ALT Alkaline Phosphata se Total Protein Albumin Globulin Urine Color Yellow Urine Appearance Cloudy Urine pH 5 Ur Specific Gravit y 1.025 Urine Protein Neg Urine Glucose (UA) Norm Urine Ketones Negative Urine Blood Neg Urine Nitrate Negative Urine Bilirubin Neg Urine Urobilinogen Norm Ur Leukocyte Chen ase Negative Urine RBC 0-4 H Urine WBC 0-4 H Ur Squamous Epith Cells 10-15 H Amorphous Sediment Not Reportable Urine Bacteria 1+ H Urine HCG, Qual Negative Blood Type Rho(D) Type Antibody Screen Antibody Identific ation Crossmatch 11/18/20 11/18/20 10:50 10:50 WBC RBC Hgb Hct MCV MCH MCHC RDW Plt Count MPV Neut % (Auto) Lymph % (Auto) [place] % (Auto) Eos % (Auto) Baso % (Auto) Neut # (Auto) Lymph # (Auto) [place] # (Auto) Eos # (Auto) Baso # (Auto) Nucleated RBC % (a uto) Nucleated RBCs # Sodium 133 L Potassium 3.8 Chloride 103 Carbon Dioxide 21 L Anion Gap 12.8 BUN 11 Creatinine 0.6 GFR Calculation 113.1 Glucose 97 Calculated Osmolal ity 275 L Calcium 9.2 Total Bilirubin 0.5 AST 17 ALT 20 Alkaline Phosphata se 103 Total Protein 7.4 Albumin 4.2 Globulin 3.2 Urine Color Urine Appearance Urine pH Ur Specific Gravit y Urine Protein Urine Glucose (UA) Urine Ketones Urine Blood Urine Nitrate Urine Bilirubin Urine Urobilinogen Ur Leukocyte Chne ase Urine RBC Urine WBC Ur Squamous Epith Cells Amorphous Sediment Urine Bacteria Urine HCG, Qual Blood Type O Positive Rho(D) Type Positive / 4+ Antibody Screen Positive Antibody Identific ation Anti-c Crossmatch See Detail Exam: Pre-Anes Outpt Exam: alert, oriented x 3, clear to auscultation bilaterally and regular rate & rhythm Cardiac Studies: No Data to Display
[2020-11-20] MEDS: sodium chloride 0.9% 500 ML IV (08:00)
[2020-11-20] MEDS: enoxaparin 30 mg/0.3 mL Syringe SUBCUT (08:12)
[2020-11-20] MEDS: scopolamine 1.5 Patch 1 PATCH TRANSDERMA (08:12)
[2020-11-20] MEDS: sodium chloride 0.9% 1,000 ML 30 ML IV (08:33)
--- NOTE | 2020-11-20 09:32 | W.PM.OPSUD ---
Surgery/Procedure H&P Update DATE OF PROCEDURE: November 20, 2020 DATE H&P PERFORMED: 01/22/20 H&P UPDATE INFORMATION: I have reviewed H&P completed within last 30 days, I have examined patient prior to procedure and No changes to prior documentation PREOP DIAGNOSIS: Abnormal uterine bleeding, chronic pelvic pain PLANNED PROCEDURE: Operation Date: 11/20/20 08:40 Proposed Procedures p Laparoscopic Assist Vaginal Hystectomy [id number] n93.9(Not Applicable) - David Wooten MD
[2020-11-20] MEDS: ceFOXitin 2,000 MG in sodium chloride 0.9% (plus) 50 ML 100 MG IV (10:00)
--- NOTE | 2020-11-20 10:49 | SUR.OPER ---
notified of surgical start and progress
--- NOTE | 2020-11-20 11:48 | P.OP_ITS ---
Operative Report Date of procedure: November 20, 2020 Pre-op Diagnosis: Abnormal uterine bleeding, chronic pelvic pain Post-op diagnosis: same Post-op Findings: Enlarged uterus, adhesions Procedure Done: Laparoscopic-assisted vaginal hysterectomy. Lysis of adhesions. Cystoscopy Specimens removed/disposition: Uterus Surgeon: David Wooten MD Anesthesia: General Estimated blood loss (mL): 250 IV fluids (mL): 1,500 Urine output (mL): 300 Complications: None Condition: stable Disposition: PACU Brief History: 35-year-old female with a history of chronic pelvic pain and abnormal uterine bleeding unresponsive to medical management. Procedure: After informed consent, the patient was taken to the operating room where general anesthesia was administered. Pre-Procedure Time-Out verifying the correct patient identity, correct procedure verified with consent, correct site and side, correct patient position, availability of correct implants and any special equipment or requirements was performed and acknowledge by the OR team. She was placed in the dorsal lithotomy position and prepped and draped in sterile fashion. The patient was examined under anesthesia and found to have a normal uterus with normal adnexa. A Dean catheter was placed in the bladder. A weighted speculum was placed in the vagina, and the anterior lip of cervix was grasped with the single toothed tenaculum. A uterine manipulator was advanced into the endocervical. Tenaculum was removed after uterine manipulator was secured. The speculum was removed from the vagina. The attention was brought to abdomen after changing gloves. The base of the umbilicus was grasped with an Allis clamp and with 2 towel clamp bilaterally tenting up the umbilicus an intraumbilical incision was made with a scalpel. While tenting up on the abdom en, a Verres needle with sleeve was admitted into the intra-abdominal cavity. A saline drop test was performed and noted to be within normal limits. Pneumoperitoneum was attained with 4 liters of carbon dioxide. The Verres needle was removed. Then a 5 mm Optiview trocar and cannula were inserted under direct visualization without complications. Trocars were removed and the laparoscope was inserted and connected to the video camera light source. A 5 mm trocar and cannula were placed in the right lower quadrant under direct visualization after infiltration of 0.5% Marcaine with epinephrine. A 5 mm trocar and cannula were placed in the left lower quadrant under direct visualization after infiltration of 0.5% Marcaine with epinephrine. The pelvic contents were visualized and noted a small uterus, deep cul-de-sac, normal bilateral fallopian tubes and ovaries, normal appendix, and both ureters were identified crossing the pelvic brim and pelvic sidewall. The left round ligament was coagulated and transected using Voyant device. The left broad ligament was opened down to the level of the uterine artery and vein. The left tubovarian mesosalpinx ligament was coagulated using Voyant and then transected. The right round ligament was coagulated and transected using Voyant, and the right broad ligament was opened down to the level of the right uterine artery and vein. The right tubovarian mesosalpinx ligament was coagulated and transected using Voyant. Peritoneum of the lower uterine segment was entered using Voyant device, and the bladder was dissected off the lower uterine segment using blunt dissection. And adhesions to the anterior abdominal wall were lysed with the Voyant device. Careful inspection revealed complete hemostasis. The vaginal Bookwalter self retaining r etractor was placed in the vagina with the bilatral right-angle retractor used to visualize the cervix. The cervix was grasped across the anterior lip with a single-toothed tenaculum and circumferentially infiltrated with 1% Xylocaine with epinephrine at this time. The cervix was circumferentially excised with the scalpel. The vaginal mucosa was dissected superiorly with sharp dissection. The anterior peritoneal reflection was identified, and it was entered with Metzenbaum scissors. A posterior colpotomy was made through the cul-de-sac space. The posterior peritoneum was identified in similar fashion and Metzenbaum scissors were used to enter the cul-de-sac. At this time, the inferior curved badle of the self-retaining vaginal retractor was reposition and advanced posteriorly into the cul-de-sac. At this time, the left and right uterosacral ligaments were isolated and ligated with 0 Vicryl. The Enseal device was then used in a serial fashion up through the cardinal ligaments bilaterally. Finally, the uterine arteries were cross-clamped, cut, and ligated with the Enseal device. Enseal device was then used up through the broad ligaments superiorly and finally the uterus was rotated posteriorly. The left and right tubes were then cross-clamped and ligated with Enseal device. The uterus was excised and submitted for pathologic evaluation. The pedicles were doubly ligated bilaterally with 0 Vicryl and hemostasis noted to be achieved. No other abnormalities were noted in the pelvic cavity. At this time, instruments were removed from the patient's abdominopelvic cavity. The patietn was given indigo carmine. The vaginal cuff closure and peritoneum were incorporated into one layer with 0 Vicryl suture in a continuous running interlocking fashion. Hemostasis was noted to be achieved. Dean catheter was then placed yielding clear blue urine. Then attention was place abdominal trocars and Pneumoperitoneum was abtained to assess the pelvis post vaginal cuff closure. Good hemostasis was noted. Then the trocars were removed under direct visualization with not bleeding noted from sites and the carbon dioxide was allowed to escape from the abdomen. The trocar incision were closed with 3-O Vicryl and Exofin adhesve. The patient tolerated the procedure well and was taken to the recovery room in a stable condition. Sponge and needle counts were correct x3. Lige sure
[2020-11-20] MEDS: HYDROcodone-acetaminophen 5-325 mg Tablet PO ×2 (13:22→20:18)
--- NOTE | 2020-11-20 16:04 | ANE.PACU2 ---
Inpatient post-anesthesia follow up: Airway intact: Yes Vital signs: Temperature 98.2 F Pulse Rate 96 Respiratory Rate 18 Blood Pressure 116/82 Pulse Oximetry 96 Oxygen Delivery Me thod Room Air Oxygen Flow Rate Fraction of Inspir ed Oxygen Hydration adequate: Yes Nausea and vomiting: No Pain level: 2 Mental status: Baseline
[2020-11-20] MEDS: dextrose 5%-lactated ringers 1,000 ML 125 ML IV ×2 (16:19→20:18)
[2020-11-20] MEDS: docusate sodium 100 mg Capsule PO (18:09)
[2020-11-20] MEDS: triamcinolone 0.1% cream 15 gm 1 APPLIC TOPICAL (20:16)
[2020-11-21] MEDS: HYDROcodone-acetaminophen 5-325 mg Tablet PO (05:03)
[2020-11-21 05:57] LABS: Hemoglobin 10.9 g/dL (11.5-15.3); Mean Corpuscular HGB Conc 31.1 g/dL (30.0-36.0); Mean Corpuscular Hemoglobin 25.1 pg (28.0-34.0); Mean Corpuscular Volume 80.5 fL (81-99); Mean Platelet Volume 11.4 fL (7.4-10.4); Platelet Count 216 10^3/cmm (130-400); Red Blood Count 4.35 10^6/uL (4.1-5.3); Red Cell Distribution Width 16.5 % (12.1-15.1); White Blood Count 9.2 10^3/uL (4.0-10.0)
[2020-11-21 05:58] VITALS: BP 96/62; PULSE 65; RESP 16; TEMP 36.8; O2SAT 96
[2020-11-21 08:58] VITALS: BP 99/64; PULSE 76; RESP 16; TEMP 36.9; O2SAT 96
== END 2020-11-21 10:04 | disposition home or self-care (01) ==
LOC: OBGYN 12:21
PROVIDERS: Admitting Provider Obstetrics & Gynecology; PCP Family Medicine; Visit Provider Obstetrics & Gynecology
PROC: 0UT9FZZ Resection of Uterus, Via Natural or Artificial Opening With Percutaneous Endoscopic Assistance (ICD-10-PCS; CPT 58550; principal; 2020-11-20 08:40)
DX: N89.8 Other specified noninflammatory disorders of vagina (principal); R10.2 Pelvic and perineal pain; K66.0 Peritoneal adhesions (postprocedural) (postinfection); K21.9 Gastro-esophageal reflux disease without esophagitis; E66.01 Morbid (severe) obesity due to excess calories
CPT/HCPCS: 58550; 36415; 80053; 81001; 81025; 84703; 85025; 85027; 86850; 86870; 86900; 86920; 88307; 96365; 96372; G0378; J0694; J1100; J1650; J2250; J2370; J2405; J2704; J2710; J3010; J3490; J7030; J7040

== ENCOUNTER → 2021-01-09 13:23 | Outpatient (BNVA) | payer BC, MEDICAID, SELFPAY | PROVIDERS: PCP Family Medicine; Visit Provider Specialist | DX: G43.711 Chronic migraine without aura, intractable, with status migrainosus (principal) | CPT/HCPCS: 64615; J0585 ==

== ENCOUNTER → 2021-03-03 13:51 | Outpatient (BNVA) | payer BC, SELFPAY | PROVIDERS: PCP Family Medicine; Visit Provider Counselor Mental Health | DX: F41.1 Generalized anxiety disorder (principal) | CPT/HCPCS: 90834 ==

== ENCOUNTER → 2021-03-19 08:08 | Outpatient (BNVA) | payer BC, SELFPAY | PROVIDERS: PCP Family Medicine; Visit Provider Counselor Mental Health | DX: F41.1 Generalized anxiety disorder (principal) | CPT/HCPCS: 90834 ==

== ENCOUNTER → 2021-04-02 14:53 | Outpatient (BNVA) | payer BC, MEDICAID, SELFPAY | PROVIDERS: PCP Family Medicine; Visit Provider Anesthesiology | DX: G89.29 Other chronic pain (principal); M54.42 Lumbago with sciatica, left side; Z79.891 Long term (current) use of opiate analgesic | CPT/HCPCS: 99213 ==

== ENCOUNTER → 2021-04-03 08:34 | Outpatient (BNVA) | payer BC, MEDICAID, SELFPAY | PROVIDERS: PCP Family Medicine; Visit Provider Specialist | DX: G43.709 Chronic migraine without aura, not intractable, without status migrainosus (principal) | CPT/HCPCS: 64615; J0585 ==

== ENCOUNTER → 2021-04-15 11:55 | Outpatient (BNVA) | payer BC, MEDICAID, SELFPAY | PROVIDERS: PCP Family Medicine; Visit Provider Family Medicine | DX: M79.604 Pain in right leg (principal); M79.605 Pain in left leg; E55.9 Vitamin D deficiency, unspecified | CPT/HCPCS: 80053; 82306; 82728; 83550; 84443; 85025; 85651; 86140 ==

== ENCOUNTER → 2021-04-23 09:50 | Outpatient (BNVA) | payer BC, MEDICAID, SELFPAY | PROVIDERS: PCP Family Medicine; Visit Provider Family Medicine | DX: R53.83 Other fatigue (principal); M54.5 Low back pain; G89.29 Other chronic pain; R10.2 Pelvic and perineal pain; K21.9 Gastro-esophageal reflux disease without esophagitis | CPT/HCPCS: 86038; 86431 ==

== ENCOUNTER → 2021-04-30 08:24 | Outpatient (BNVA) | payer BC, SELFPAY | PROVIDERS: PCP Family Medicine; Visit Provider Counselor Mental Health | DX: F41.1 Generalized anxiety disorder (principal) | CPT/HCPCS: 90834 ==

== ENCOUNTER → 2021-05-09 07:44 | Outpatient (BNVA) | payer BC, SELFPAY | PROVIDERS: PCP Family Medicine; Visit Provider Counselor Mental Health | DX: F41.1 Generalized anxiety disorder (principal) | CPT/HCPCS: 90834 ==

== ENCOUNTER → 2021-05-23 09:03 | Outpatient (BNVA) | payer BC, SELFPAY | PROVIDERS: PCP Family Medicine; Visit Provider Counselor Mental Health | DX: F41.1 Generalized anxiety disorder (principal) | CPT/HCPCS: 90834 ==

== ENCOUNTER → 2021-06-12 13:01 | Outpatient (BNVA) | payer BC, MEDICAID, SELFPAY | PROVIDERS: PCP Family Medicine; Visit Provider Anesthesiology | DX: G89.29 Other chronic pain (principal); M54.50 Low back pain, unspecified; R53.83 Other fatigue; Z79.891 Long term (current) use of opiate analgesic | CPT/HCPCS: 99213 ==

== ENCOUNTER → 2021-06-23 14:15 | Outpatient (BNVA) | payer BC, SELFPAY | PROVIDERS: PCP Family Medicine; Visit Provider Counselor Mental Health | DX: F41.1 Generalized anxiety disorder (principal) | CPT/HCPCS: 90834 ==

== ENCOUNTER → 2021-06-26 09:36 | Outpatient (BNVA) | payer BC, MEDICAID, SELFPAY | PROVIDERS: PCP Family Medicine; Visit Provider Specialist | DX: G43.709 Chronic migraine without aura, not intractable, without status migrainosus (principal) | CPT/HCPCS: 64615; J0585 ==

== ENCOUNTER → 2021-07-10 09:24 | Outpatient (BNVA) | payer BC, MEDICAID, SELFPAY | PROVIDERS: PCP Family Medicine; Visit Provider Nurse Practitioner Family | DX: Z20.822 Contact with and (suspected) exposure to COVID-19 (principal) | CPT/HCPCS: 87400; 87635 ==

== ENCOUNTER → 2021-09-03 07:58 | Outpatient (BNVA) | payer BC, MEDICAID, SELFPAY | PROVIDERS: PCP Family Medicine; Visit Provider Anesthesiology | DX: G89.29 Other chronic pain (principal); M54.50 Low back pain, unspecified; Z79.891 Long term (current) use of opiate analgesic | CPT/HCPCS: 99213 ==

== ENCOUNTER 2021-09-11 15:24 | Emergency (ER) | payer BC, MEDICAID, SELFPAY ==
[2021-09-11 15:31] VITALS: BP 135/92; PULSE 111; RESP 24; TEMP 38.1; O2SAT 98; BMI 33.5
--- NOTE | 2021-09-11 15:49 | XR_ITS ---
WS: [id number] Portable AP upright chest, 09/11/2021 Clinical Data: dyspnea/cough Comparison: PA and lateral chest, 02/03/2018. Findings: No nodules, masses or effusions are seen. The heart is normal. The pulmonary vascularity is not increased. No pneumonia or pneumothorax is seen. XR/XR chest 1V portable [id number] Impression: Negative chest.
[2021-09-11 15:57] VITALS: BP 123/83; PULSE 108; RESP 22; O2SAT 97
--- NOTE | 2021-09-11 16:39 | CTR_ITS ---
PROCEDURE INFORMATION: Exam: CT Abdomen And Pelvis With Contrast Exam date and time: 09/11/2021 4:39 PM Age: 36 years old Clinical indication: Nausea and vomiting; Abdominal pain; Prior surgery; Surgery type: , tubal, hyst, gb, d&c; Additional info: Abd pain TECHNIQUE: Imaging protocol: Computed tomography of the abdomen and pelvis with contrast. Sagittal and coronal reformatted images were created and reviewed. Radiation optimization: All CT scans at this facility use at least one of these dose optimization techniques: automated exposure control; mA and/or kV adjustment per patient size (includes targeted exams where dose is matched to clinical indication); or iterative reconstruction. Contrast material: OMNI 300; Contrast volume: 95 ml; Contrast route: INTRAVENOUS (IV); COMPARISON: CT Abdomen/Pelvis Renal 32510 10/13/2018 3:13 PM RADIATION DOSE METRICS: Total DLP (mGy-cm): 1857.51 FINDINGS: Lungs: Visualized lungs are clear. Pleural spaces: No pleural effusion. Heart: Visualized portions of the heart are unremarkable. Liver: Stable small area of decreased density in the liver adjacent to the falciform ligament, this most likely represents focal fatty infiltration. Gallbladder and bile ducts: Stable findings consistent with a previous cholecystectomy. No biliary ductal dilatation. Pancreas: The pancreas is unremarkable. No pancreatic ductal dilatation. Spleen: The spleen is unremarkable. Adrenal glands: The right and left adrenal glands are unremarkable. Kidneys and ureters: The right and left kidneys are unremarkable. The right and left ureters are unremarkable. Stomach and bowel: No obstruction. No mucosal thickening. Appendix: The appendix is visualized and is unremarkable. No findings to suggest acute appendicitis. Intraperitoneal space: No free intraperitoneal air. No ascites. No loculated fluid collections to suggest an abscess. Vasculature: No evidence for aortic aneurysm or aortic dissection. Hepatic veins, portal veins, splenic vein, and SMV are patent. Incidental note of a retroaortic left renal vein. Visualized IVC is unremarkable. Lymph nodes: No lymphadenopathy. Urinary bladder: Diffuse, mild wall thickening of the bladder. Reproductive: The patient has had an interval hysterectomy. Interval development of dominant follicles in both ovaries. A single dominant follicle is seen in the right ovary measuring 1.7 x 1.1 cm. Two dominant follicles in the left ovary, the larger measures 1.7 x 1.8 cm (series 3, image 68). Stable calcifications in both right and left ovaries, possibly due to sequela from prior involuting cysts. Bones/joints: Multilevel degenerative changes of varying severity in the visualized spine. Moderate degenerative changes of the right and left sacroiliac joints. Moderate degenerative changes at both the right and left hips. Soft tissues: No acute abnormality in the extra-abdominal soft tissues. CT/CT abdomen pelvis w con* [id number] IMPRESSION: 1. Diffuse, mild wall thickening of the bladder. In the correct clinical setting, this may suggest cystitis. Recommend correlation with laboratory findings. 2. Interval development of dominant follicles in both ovaries. 3. The patient has had an interval hysterectomy. 4. Incidental/nonacute findings are listed in the report.
--- NOTE | 2021-09-11 16:54 | ED_ITS ---
Documented by User: Hadley Mancuso DO 09/13/21 08:05 HPI - Abdominal Pain General: Chief Complaint: Shortness of Breath/Dyspnea Stated Complaint: Hurting all over alot of pain Time Seen by Provider: 09/11/21 15:43 History of Present Illness: HPI narrative: 36-year-old female presents emergency room complaining of headache nausea and rib pain. It began this morning. It progressively worsened throughout the day she told the nurse when she came in that she was short of breath however overnight talk to her she really downplayed that. Her sats in the triage room are 92% on room air she was complaining mostly of abdominal pain. She had one episode of nausea and vomiting prior to arrival she denies any hematuria hematochezia melena hematemesis coffee-ground emesis no dysuria urgency or frequency. She has previously had cholecystectomy and hysterectomy she localizes the pain to the right lower quadrant. MD elicited complaint: abdominal pain Onset (ago): hour(s) Pain Consistency: constant Location: RLQ Severity: severe Quality: stabbing Radiation: R flank Migration to: suprapubic Exacerbating factors: movement Relieving factors: rest Associated Symptoms: Reports bloating, GI cramping, nausea, poor appetite and vomiting; Denies anorexia, belching, change in bowel habits, change in stool character, chills, coffee ground emesis, constipation, diarrhea, dyspepsia, dysuria, excessive flatus, fever(s), heartburn, hematochezia, hematuria, hematemesis, fecal incontinence, loose stools, melena and syncope Related Data: Date of Last Menstrual Period: 08/09/20 Review of Systems Const: Denies: fever(s) or chills ENMT: Denies: throat pain, ear or mastoid pain, nasal discharge or nasal congestion Card: Denies: syncope Resp: Denies: dyspnea, productive cough or non-productive cough GI: Reports: nausea, vomiting, bloating and GI cramping; Denies: hematemesis, coffee ground emesis, heartburn, diarrhea, constipation, belching, excessive flatus, fecal incontinence, change in bowel habits, change in stool character, hematochezia or melena : Denies: dysuria or hematuria Skin/Breast: Denies: rash or pruritus PFSH ED PFSH: Medical History Anxiety 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 Chronic low back pain Chronic pelvic pain in female Encounter for long-term (current) use of NSAIDs Encounter for long-term opiate analgesic use GERD (gastroesophageal reflux disease) Low back pain Psychiatric care Status post hysteroscopy (01/24/20) [facility], [place], [place]. Dr. David Wooten. Pre-op Diagnosis: Abnormal uterine bleeding: menorrhagia Post-op diagnosis: same Post-op Findings: Proliferative endometrium Procedure Done: Hysteroscopy with D&C. Endometrial ablation Surgical History H/O section H/O tubal ligation H/O: hysterectomy 11/20/2020- laparoscopic assisted vaginal hysterectomy, lysis of adhesions and cystoscopy performed by Dr. Wooten at [facility] History of cholecystectomy History of D&C History of hysteroscopy Hysteroscopy with D&C on 01/24/2020- performed by Dr. Wooten at [facility] History of tonsillectomy Family History Mother Migraine Thyroid condition Grandfather Migraine maternal Father Seizure Son Seizure Sister Heart disease Grandmother Ovarian cancer paternal, 50's Denies family history of Colon cancer Diabetes Clotting disorder Hyperlipidemia Breast cancer Anesthesia complication Bleeding disorder Hypertension Uterine cancer Stroke Social History Second hand smoke exposure: No Alcohol intake: never History of recent travel: No Female Reproductive History: Date of last menstrual period: 08/09/20 Physical Exam Const: COMMON NORMALS: no acute distress GENERAL APPEARANCE: cooperative and comfortable ORIENTATION/CONSCIOUSNESS: Yes awake, Yes oriented to person, Yes oriented to place and Yes oriented to time HENMT: COMMON NORMALS: normocephalic, atraumatic and hearing grossly normal bilaterally HEAD & SCALP: normocephalic and atraumatic Neck/C-Spine: COMMON NORMALS: no JVD Resp: COMMON NORMALS: normal respiratory effort, No retractions, No use of accessory muscles and clear to auscultation bilaterally AUSCULTATION: clear to auscultation bilaterally Cardio: COMMON NORMALS: no JVD, regular rate, regular rhythm and No murmurs present (Cardio) RATE: regular rate RHYTHM: regular rhythm GI: COMMON NORMALS: Soft to palpation and No hepatosplenomegaly present AUSCULTATION: Yes normoactive bowel sounds PALPATION: Yes Soft to palpation, No Tenderness to palpation present (GI), No Guarding due to palpation present (GI) and Yes No hepatosplenomegaly present Extremity: COMMON NORMALS: normal to inspection, capillary refill normal, no clubbing, cyanosis or edema, no calf tenderness and no pedal edema Neuro: SENSORIUM/ORIENTATION: Yes oriented to person, Yes oriented to place and Yes oriented to time Skin: COMMON NORMALS: no rashes or lesions noted GENERAL SKIN EXAM: no rashes or lesions noted Course Vital Signs: Vital signs: Vital Signs Temperature 98.7 F 09/11/21 20:37 Pulse Rate 109 H 09/11/21 20:37 Respiratory Rate 20 H 09/11/21 20:37 Blood Pressure 121/78 09/11/21 20:37 Pulse Oximetry 99 09/11/21 20:37 MDM - Abdominal Pain MDM Narrative: Medical decision making narrative: Care turned over to Dr. Barrett at change shift see his note for final diagnosis and disposition. Lab Data: Labs: Lab Results 09/11/21 09/11/21 09/11/21 17:07 17:07 17:07 WBC 7.3 10^3/uL 10^3/ uL (4.0-10.0) RBC 5.72 10^6/uL H 10 ^6/uL (4.1-5.3) Hgb 15.9 g/dL H g/dL (11.5-15.3) Hct 48.2 % H % (37.0-47.0) MCV 84.3 fl fl (81-99) MCH 27.8 pg L pg (28.0-34.0) MCHC 33.0 g/dL g/dL (30.0-36.0) RDW 13.9 % % (12.1-15.1) Plt Count 244 10^3/cmm 10^3 /cmm (130-400) MPV 10.7 fL H fL (7.4-10.4) Neut % (Auto) 84.6 % % Lymph % (Auto) 3.3 % % Greer % (Auto) 7.7 % % Eos % (Auto) 3.4 % % Baso % (Auto) 0.4 % % Neut # (Auto) 6.13 10^3/uL 10^3 /uL (1.8-7.7) Lymph # (Auto) 0.2 10^3/uL L 10^ 3/uL (0.8-4.8) Greer # (Auto) 0.6 10^3/uL 10^3/ uL (0.2-0.9) Eos # (Auto) 0.3 10^3/uL 10^3/ uL (0.0-0.8) Baso # (Auto) 0.0 10^3/uL 10^3/ uL (0.0-0.1) Nucleated RBC % (a uto) 0 % % Nucleated RBCs # 0.0 /100WBC /100W BC Sodium 135 mmol/L L mmol /L (136-145) Potassium 3.5 mmol/L mmol/L (3.5-5.1) Chloride 98 mmol/L mmol/L (98-107) Carbon Dioxide 18 mmol/L L mmol/ L (22-29) Anion Gap 22.5 H (5-19) BUN 9 mg/dL mg/dL (6-20) Creatinine 0.5 mg/dL mg/dL (0.5-0.9) GFR Calculation 138.8 mL/min H mL /min (90-130) Glucose 88 mg/dL mg/dL (65-115) Calculated Osmolal ity 278 mOsm/kg L mOs m/kg (285-295) Calcium 10.5 mg/dL mg/dL (8.5-10.5) Total Bilirubin 0.9 mg/dL mg/dL (0.15-1.2) AST 18 U/L U/L (0-32) ALT 23 U/L U/L (0-33) Alkaline Phosphata se 110 IU/L H IU/L (35-105) Total Protein 9.2 g/dL H g/dL (6.6-8.7) Albumin 5.2 g/dL g/dL (3.5-5.2) Globulin 4.0 g/dL g/dL (1.3-4.6) Urine Color Urine Appearance Urine pH Ur Specific Gravit y Urine Protein Urine Glucose (UA) Urine Ketones Urine Blood Urine Nitrate Urine Bilirubin Urine Urobilinogen Ur Leukocyte Chen ase Serum Ketones Coronavirus 229E ( PCR) Not detected (NOT DETECT) SARS-CoV-2 (PCR) Detected A (NOT DETECT) 09/11/21 09/11/21 17:07 17:07 WBC RBC Hgb Hct MCV MCH MCHC RDW Plt Count MPV Neut % (Auto) Lymph % (Auto) Greer % (Auto) Eos % (Auto) Baso % (Auto) Neut # (Auto) Lymph # (Auto) Greer # (Auto) Eos # (Auto) Baso # (Auto) Nucleated RBC % (a uto) Nucleated RBCs # Sodium Potassium Chloride Carbon Dioxide Anion Gap BUN Creatinine GFR Calculation Glucose Calculated Osmolal ity Calcium Total Bilirubin AST ALT Alkaline Phosphata se Total Protein Albumin Globulin Urine Color Yellow (Yellow) Urine Appearance Clear (CLEAR) Urine pH 7 (5-7) Ur Specific Gravit y 1.010 (1.005-1.030) Urine Protein Neg (Negative) Urine Glucose (UA) Norm (Normal) Urine Ketones 2+ H (Negative) Urine Blood Neg (Negative) Urine Nitrate Negative (Negative) Urine Bilirubin Neg (Negative) Urine Urobilinogen Norm mg/dL mg/dL (Negative) Ur Leukocyte Chen ase Negative (Negative) Serum Ketones Negative (Negative) Coronavirus 229E ( PCR) SARS-CoV-2 (PCR) Discharge Plan Discharge Patient Disposition: Home Clinical Impression: COVID-19 Condition: Stable Prescriptions: New ondansetron 4 mg tablet,disintegrating 4 mg PO Q6H PRN (Reason: nausea and vomiting) Qty: 14 RF: 0 hydrocodone-acetaminophen 5-325 mg tablet 1 tab PO Q6H PRN (Reason: pain) Qty: 14 RF: 0 No Action betamethasone, augmented [Diprolene (augmented)] 0.05 % ointment 1 applic topical BID PRN (Reason: skin irritation) Qty: 50 RF: 0 acetaminophen-codeine 300-60 mg tablet 1 tab PO Q6H PRN (Reason: pain) 30 Days Qty: 120 RF: 2 tizanidine 4 mg tablet 4 mg PO BID PRN (Reason: muscle spasticity) 30 Days Qty: 60 RF: 2 triamcinolone acetonide 0.1 % cream 1 applic topical BID 90 Days Qty: 454 RF: 1 omeprazole 40 mg capsule,delayed release(DR/EC) 40 mg PO DAILY Qty: 90 RF: 1 sumatriptan succinate [Imitrex] 100 mg tablet 100 mg PO Q2H PRN (Reason: migraine headache) Qty: 9 RF: 1 dihydroergotamine 0.5 mg/pump act. (4 mg/mL) spray,non-aerosol See Rx Instructions .ROUTE .COMPLEX Qty: 8 RF: 0 Discharge Orders: Discharge ED (Routine); Ordered 09/11/21 Ordered By: Miranda Barrett Referrals: Laurel Conde DO [Primary Care Provider] - Discharge Diet: Advance as tolerated Discharge Activity: Resume usual activity Patient Instructions: COVID-19 (Coronavirus Disease 2019) (ED) Coding Level of Care Code ED Snuff Box Finisher for Chg Fwd Exam Comprehensive Documented by User: Miranda Barrett MD 09/11/21 20:27 HPI - Abdominal Pain General: Chief Complaint: Shortness of Breath/Dyspnea Stated Complaint: Hurting all over alot of pain Time Seen by Provider: 09/11/21 15:43 PFSH ED PFSH: Medical History Anxiety 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 Chronic low back pain Chronic pelvic pain in female Encounter for long-term (current) use of NSAIDs Encounter for long-term opiate analgesic use GERD (gastroesophageal reflux disease) Low back pain Psychiatric care Status post hysteroscopy (01/24/20) [place], [place]. Dr. David Wooten. Pre-op Diagnosis: Abnormal uterine bleeding: menorrhagia Post-op diagnosis: same Post-op Findings: Proliferative endometrium Procedure Done: Hysteroscopy with D&C. Endometrial ablation Surgical History H/O section H/O tubal ligation H/O: hysterectomy 11/20/2020- laparoscopic assisted vaginal hysterectomy, lysis of adhesions and cystoscopy performed by Dr. Wooten at [facility] History of cholecystectomy History of D&C History of hysteroscopy Hysteroscopy with D&C on 01/24/2020- performed by Dr. Wooten at [facility] History of tonsillectomy Family History Mother Migraine Thyroid condition Grandfather Migraine maternal Father Seizure Son Seizure Sister Heart disease Grandmother Ovarian cancer paternal, 50's Denies family history of Colon cancer Diabetes Clotting disorder Hyperlipidemia Breast cancer Anesthesia complication Bleeding disorder Hypertension Uterine cancer Stroke Social History Second hand smoke exposure: No Alcohol intake: never History of recent travel: No Course Vital Signs: Vital signs: Vital Signs Temperature 98.7 F 09/11/21 20:37 Pulse Rate 109 H 09/11/21 20:37 Respiratory Rate 20 H 09/11/21 20:37 Blood Pressure 121/78 09/11/21 20:37 Pulse Oximetry 99 09/11/21 20:37 MDM - Abdominal Pain MDM Narrative: Medical decision making narrative: Patient presents for fever headache muscle aches all likely due to COVID. Her COVID is positive here she has no signs of severe infection. No signs of meningitis CT abdomen here is normal x-ray here of her chest is normal as well. She is not requiring any oxygen she does feel improved we will prescribe her some Zofran for nausea she is to follow-up with PCP in 3 to 5 days return if worsening she understands agrees to plan. Lab Data: Labs: Lab Results 09/11/21 09/11/21 09/11/21 17:07 17:07 17:07 WBC 7.3 10^3/uL 10^3/ uL (4.0-10.0) RBC 5.72 10^6/uL H 10 ^6/uL (4.1-5.3) Hgb 15.9 g/dL H g/dL (11.5-15.3) Hct 48.2 % H % (37.0-47.0) MCV 84.3 fl fl (81-99) MCH 27.8 pg L pg (28.0-34.0) MCHC 33.0 g/dL g/dL (30.0-36.0) RDW 13.9 % % (12.1-15.1) Plt Count 244 10^3/cmm 10^3 /cmm (130-400) MPV 10.7 fL H fL (7.4-10.4) Neut % (Auto) 84.6 % % Lymph % (Auto) 3.3 % % Greer % (Auto) 7.7 % % Eos % (Auto) 3.4 % % Baso % (Auto) 0.4 % % Neut # (Auto) 6.13 10^3/uL 10^3 /uL (1.8-7.7) Lymph # (Auto) 0.2 10^3/uL L 10^ 3/uL (0.8-4.8) Greer # (Auto) 0.6 10^3/uL 10^3/ uL (0.2-0.9) Eos # (Auto) 0.3 10^3/uL 10^3/ uL (0.0-0.8) Baso # (Auto) 0.0 10^3/uL 10^3/ uL (0.0-0.1) Nucleated RBC % (a uto) 0 % % Nucleated RBCs # 0.0 /100WBC /100W BC Sodium 135 mmol/L L mmol /L (136-145) Potassium 3.5 mmol/L mmol/L (3.5-5.1) Chloride 98 mmol/L mmol/L (98-107) Carbon Dioxide 18 mmol/L L mmol/ L (22-29) Anion Gap 22.5 H (5-19) BUN 9 mg/dL mg/dL (6-20) Creatinine 0.5 mg/dL mg/dL (0.5-0.9) GFR Calculation 138.8 mL/min H mL /min (90-130) Glucose 88 mg/dL mg/dL (65-115) Calculated Osmolal ity 278 mOsm/kg L mOs m/kg (285-295) Calcium 10.5 mg/dL mg/dL (8.5-10.5) Total Bilirubin 0.9 mg/dL mg/dL (0.15-1.2) AST 18 U/L U/L (0-32) ALT 23 U/L U/L (0-33) Alkaline Phosphata se 110 IU/L H IU/L (35-105) Total Protein 9.2 g/dL H g/dL (6.6-8.7) Albumin 5.2 g/dL g/dL (3.5-5.2) Globulin 4.0 g/dL g/dL (1.3-4.6) Urine Color Urine Appearance Urine pH Ur Specific Gravit y Urine Protein Urine Glucose (UA) Urine Ketones Urine Blood Urine Nitrate Urine Bilirubin Urine Urobilinogen Ur Leukocyte Chen ase Serum Ketones Coronavirus 229E ( PCR) Not detected (NOT DETECT) SARS-CoV-2 (PCR) Detected A (NOT DETECT) 09/11/21 09/11/21 17:07 17:07 WBC RBC Hgb Hct MCV MCH MCHC RDW Plt Count MPV Neut % (Auto) Lymph % (Auto) Greer % (Auto) Eos % (Auto) Baso % (Auto) Neut # (Auto) Lymph # (Auto) Greer # (Auto) Eos # (Auto) Baso # (Auto) Nucleated RBC % (a uto) Nucleated RBCs # Sodium Potassium Chloride Carbon Dioxide Anion Gap BUN Creatinine GFR Calculation Glucose Calculated Osmolal ity Calcium Total Bilirubin AST ALT Alkaline Phosphata se Total Protein Albumin Globulin Urine Color Yellow (Yellow) Urine Appearance Clear (CLEAR) Urine pH 7 (5-7) Ur Specific Gravit y 1.010 (1.005-1.030) Urine Protein Neg (Negative) Urine Glucose (UA) Norm (Normal) Urine Ketones 2+ H (Negative) Urine Blood Neg (Negative) Urine Nitrate Negative (Negative) Urine Bilirubin Neg (Negative) Urine Urobilinogen Norm mg/dL mg/dL (Negative) Ur Leukocyte Chen ase Negative (Negative) Serum Ketones Negative (Negative) Coronavirus 229E ( PCR) SARS-CoV-2 (PCR) Discharge Plan Discharge Patient Disposition: Home Clinical Impression: COVID-19 Condition: Stable Prescriptions: New ondansetron 4 mg tablet,disintegrating 4 mg PO Q6H PRN (Reason: nausea and vomiting) Qty: 14 RF: 0 hydrocodone-acetaminophen 5-325 mg tablet 1 tab PO Q6H PRN (Reason: pain) Qty: 14 RF: 0 No Action betamethasone, augmented [Diprolene (augmented)] 0.05 % ointment 1 applic topical BID PRN (Reason: skin irritation) Qty: 50 RF: 0 acetaminophen-codeine 300-60 mg tablet 1 tab PO Q6H PRN (Reason: pain) 30 Days Qty: 120 RF: 2 tizanidine 4 mg tablet 4 mg PO BID PRN (Reason: muscle spasticity) 30 Days Qty: 60 RF: 2 triamcinolone acetonide 0.1 % cream 1 applic topical BID 90 Days Qty: 454 RF: 1 omeprazole 40 mg capsule,delayed release(DR/EC) 40 mg PO DAILY Qty: 90 RF: 1 sumatriptan succinate [Imitrex] 100 mg tablet 100 mg PO Q2H PRN (Reason: migraine headache) Qty: 9 RF: 1 dihydroergotamine 0.5 mg/pump act. (4 mg/mL) spray,non-aerosol See Rx Instructions .ROUTE .COMPLEX Qty: 8 RF: 0 Discharge Orders: Discharge ED (Routine); Ordered 09/11/21 Ordered By: Miranda Barrett Referrals: Laurel Conde DO [Primary Care Provider] - Discharge Diet: Advance as tolerated Discharge Activity: Resume usual activity Patient Instructions: COVID-19 (Coronavirus Disease 2019) (ED) Coding Level of Care Code ED Snuff Box Finisher for Franciscog Fwd Exam Comprehensive
[2021-09-11 17:22] LABS: Basophils % 0.4 %; Eosinophils # 0.3 10^3/uL (0.0-0.8); Eosinophils % 3.4 %; Hematocrit 48.2 % (37.0-47.0); Hemoglobin 15.9 g/dL (11.5-15.3); Lymphocytes # 0.2 10^3/uL (0.8-4.8); Lymphocytes % 3.3 %; Mean Corpuscular Hemoglobin 27.8 pg (28.0-34.0); Mean Corpuscular Volume 84.3 fl (81-99); Mean Platelet Volume 10.7 fL (7.4-10.4); Monocytes # 0.6 10^3/uL (0.2-0.9); Monocytes % 7.7 %; Neutrophils # 6.13 10^3/uL (1.8-7.7); Neutrophils % 84.6 %; Nucleated Red Blood Cells % 0 %; Platelet Count 244 10^3/cmm (130-400); Red Blood Count 5.72 10^6/uL (4.1-5.3); Red Cell Distribution Width 13.9 % (12.1-15.1); White Blood Count 7.3 10^3/uL (4.0-10.0)
[2021-09-11 17:28] LABS: Add Urine Microscopic? NO; Charge for UA Resulting for Rev
[2021-09-11 17:42] LABS: Alanine Aminotransferase 23 U/L (0-33); Albumin Level 5.2 g/dL (3.5-5.2); Alkaline Phosphatase 110 IU/L (35-105); Anion Gap 22.5 (5-19); Aspartate Amino Transferase 18 U/L (0-32); Blood Urea Nitrogen 9 mg/dL (6-20); Calcium 10.5 mg/dL (8.5-10.5); Carbon Dioxide 18 mmol/L (22-29); Chloride 98 mmol/L (98-107); Glomerular Filtration Rate 138.8 mL/min (90-130); Glucose 88 mg/dL (65-115); Osmolality Calculated 278 mOsm/kg (285-295); Potassium 3.5 mmol/L (3.5-5.1); Sodium 135 mmol/L (136-145); Total Bilirubin 0.9 mg/dL (0.15-1.2); Total Protein 9.2 g/dL (6.6-8.7)
[2021-09-11 17:44] LABS: Bilirubin Urine Neg (Negative); Blood Urine Neg (Negative); Glucose Urine UA Norm (Normal); Ketones Urine 2+ (Negative); Leukocyte Esterase Urine Negative (Negative); Nitrate Urine Negative (Negative); Protein Urine Neg (Negative); Urine Appearance Clear (CLEAR); Urine Color Yellow (Yellow); Urobilinogen Urine Norm (Negative); pH Urine 7 (5-7)
[2021-09-11 18:02] LABS: Ketone (Acetest) Serum Negative (Negative)
[2021-09-11] MEDS: ondansetron 2 mg/ML SDV 2 mL 4 MG IVP (18:37)
[2021-09-11] MEDS: morphine 4 mg/mL SDV 1 mL IVP (18:38)
[2021-09-11] MEDS: sodium chloride 0.9% 1,000 ML 999 ML IV (18:39)
[2021-09-11 19:07] LABS: Adenovirus Not Detected (NOT DETECT); Chlamydia Pneumoniae Not Detected (NOT DETECT); Coronavirus 229E,HKU1,NL63,OC4 Not Detected (NOT DETECT); Human Metapneumovirus Not Detected (NOT DETECT); Human Rhinovirus/Enterovirus Not Detected (NOT DETECT); Influenza A Not Detected (NOT DETECT); Influenza A H1 Not Detected (NOT DETECT); Influenza A H1-2009 Not Detected (NOT DETECT); Influenza A H3 Not Detected (NOT DETECT); Influenza B Not Detected (NOT DETECT); Mycoplasma Pneumoniae Not Detected (NOT DETECT); Parainfluenza Virus Type 1 Not Detected (NOT DETECT); Parainfluenza Virus Type 2 Not Detected (NOT DETECT); Parainfluenza Virus Type 3 Not Detected (NOT DETECT); Parainfluenza Virus Type 4 Not Detected (NOT DETECT); Respiratory Syncytial Virus A Not Detected (NOT DETECT); Respiratory Syncytial Virus B Not Detected (NOT DETECT); SARS-COV-2 Detected (NOT DETECT)
--- NOTE | 2021-09-11 19:13 | CTR_ITS ---
PROCEDURE INFORMATION: Exam: CT Head Without Contrast Exam date and time: 09/11/2021 7:13 PM Age: 36 years old Clinical indication: Pain; Headache; Additional info: ARROYO TECHNIQUE: Imaging protocol: Computed tomography of the head without contrast. Sagittal and coronal reformatted images were created and reviewed. Radiation optimization: All CT scans at this facility use at least one of these dose optimization techniques: automated exposure control; mA and/or kV adjustment per patient size (includes targeted exams where dose is matched to clinical indication); or iterative reconstruction. COMPARISON: MRI Head w/wo* [id number] 02/10/2019 11:03 AM RADIATION DOSE METRICS: Total DLP (mGy-cm): 882.83 FINDINGS: Limitations: Motion artifact on multiple images that can limit evaluation. Brain: No acute intracranial hemorrhage. No acute infarct. No intra-axial or extra-axial masses. Jones-white matter differentiation is preserved. No cerebral edema. No extra-axial fluid collections. No midline shift. No evidence for Chiari 1 malformation. Cerebral ventricles: No hydrocephalus. Paranasal sinuses: Visualized paranasal sinuses are clear. Mastoid air cells: Mastoid air cells are clear bilaterally. Orbital cavity: Globes and lenses, extraocular muscles, and optic nerves are intact bilaterally. No acute intraorbital abnormality. Bones/joints: No acute fracture. Soft tissues: The extracranial soft tissues are unremarkable. CT/CT head wo con* [id number] IMPRESSION: Motion artifact on multiple images that can limit evaluation. Otherwise, no acute abnormality of the brain.
[2021-09-11] MEDS: iohexol 300 mg/mL 100 mL Btl IV (19:18)
--- NOTE | 2021-09-11 19:43 | PC.NURSE ---
reports received, patient resting on stretcher side rails up times 2, call walton in reach.
[2021-09-11] MEDS: dexamethasone 10 mg/mL INJ 6 MG IVP (20:30)
[2021-09-11] MEDS: metoclopramide 5 mg/mL SDV 2 mL 10 MG IVP (20:32)
[2021-09-11] MEDS: diphenhydrAMINE 50 mg/mL SDV 1mL IVP (20:33)
[2021-09-11 20:37] VITALS: BP 121/78; PULSE 109; RESP 20; TEMP 37.1; O2SAT 99
== END 2021-09-11 20:42 | disposition home or self-care (01) ==
PROVIDERS: Family Medicine; Emergency Provider Emergency Medicine; PCP Family Medicine
DX: U07.1 COVID-19 (principal)
CPT/HCPCS: 70450; 71045; 74177; 80053; 81003; 82009; 85025; 87635; 96361; 96374; 96375; 99284; 99291; 99292; J1100; J1200; J2270; J2405; J2765; J7030; Q9967

== ENCOUNTER 2021-09-18 08:50 | Outpatient (CLI) | payer BC, MEDICAID, SELFPAY ==
[2021-09-18 08:55] VITALS: BP 110/77; PULSE 91; RESP 16; TEMP 36.8; O2SAT 98
[2021-09-18 09:13] VITALS: BP 110/77; PULSE 91; RESP 16; TEMP 36.8; O2SAT 98; BMI 32.5
[2021-09-18 09:37] VITALS: BP 111/78; PULSE 82; RESP 16; TEMP 36.4; O2SAT 98
[2021-09-18 10:36] VITALS: BP 124/80; PULSE 80; RESP 16; TEMP 36.4; O2SAT 99
== END 2021-09-18 08:51 | disposition home or self-care (01) ==
LOC: OPS 08:52
PROVIDERS: PCP Family Medicine; Visit Provider Nurse Practitioner Family
DX: U07.1 COVID-19 (principal)
CPT/HCPCS: 96365

== ENCOUNTER → 2021-09-24 10:04 | Outpatient (BNVA) | payer BC, MEDICAID, SELFPAY | PROVIDERS: PCP Family Medicine; Visit Provider Specialist | DX: G43.711 Chronic migraine without aura, intractable, with status migrainosus (principal) | CPT/HCPCS: 64615; J0585 ==

== ENCOUNTER → 2021-09-29 08:23 | Outpatient (BNVA) | payer BC, MEDICAID, SELFPAY | PROVIDERS: PCP Family Medicine; Visit Provider Obstetrics & Gynecology | DX: R10.2 Pelvic and perineal pain (principal) | CPT/HCPCS: 81000 ==

== ENCOUNTER 2021-10-15 09:00 | Outpatient (CLI) | payer BC, MEDICAID, SELFPAY ==
--- NOTE | 2021-10-15 09:00 | MM_ITS ---
WS: [id number] DIAGNOSTIC BILATERAL DIGITAL MAMMOGRAM WITH CAD LEFT breast ultrasound, limited HISTORY: N63.20 - Unspecified lump in the left breast, unspecified... h COMPARISON: None available. TECHNIQUE: Bilateral craniocaudad, mediolateral oblique, and mediolateral views are submitted. Spot c ompression views LEFT CC and MLO. Computer aided detection utilized. Breast composition: There are scattered areas of fibroglandular density. Palpable marker over the upp er outer quadrant of the LEFT breast at middle depth. There is some very minimal thickening of the fi broglandular pattern in this location. This is asymmetric to the RIGHT breast and corresponds to the palpable marker. LEFT breast ultrasound, limited. Ultrasound evaluation of the LEFT breast in the upper outer quadrant in the area of palpable nodule. In area the palpable abnormality at 2:00, 3 cm nipple is a hypoechoic nodule which is ill formed darius uring 6 x 7 x 10 mm. This is not a typical appearance for malignancy but this is not normal fibroglan dular tissue. There is no shadowing or increased vascularity. MM/[place] [id number] IMPRESSION: BI-RADS: 4-Suspicious Finding-Biopsy Should Be Considered FOLLOW UP: Biopsy Recommended Biopsy recommended of the very vague hypoechoic area in the LEFT breast at 2:00 , 3 cm from the nipple. This corresponds to the palpable abnormality described by the patient which is new. Indeterminate lesion. Notified David Wooten MD at 10/15/2021 11:30 AM. Message left on nurse line.
== END 2021-10-15 09:01 | disposition home or self-care (01) ==
LOC: RAD 09:06 → RADSHAW 11:14
PROVIDERS: PCP Family Medicine; Visit Provider Obstetrics & Gynecology
DX: N63.21 Unspecified lump in the left breast, upper outer quadrant (principal)
CPT/HCPCS: 76642; 77066

== ENCOUNTER 2021-12-10 06:53 | Outpatient (CLI) | payer BC, MEDICAID, SELFPAY ==
--- NOTE | 2021-12-10 07:15 | US_ITS ---
WS: [id number] ULTRASOUND PELVIS TECHNIQUE: Transabdominal and transvaginal. CLINICAL INFORMATION: R10.2 - Pelvic and perineal pain LMP: Hysterectomy : No. COMPARISON: June 05, 2020 FINDINGS: Uterus Prior hysterectomy Adnexa: Normal adnexa. No adnexal masses. Neither ovary is visualized. Free fluid: None. Other findings: Fluid distended small bowel loops. Normal visualized bladder. US/US pelvic with transvaginal IMPRESSION: 1. Prior hysterectomy. Normal uterine bed. No cystic or solid lesions. 2. Neither ovary is visualized. 3. Normal adnexa. No adnexal masses. 4. No other significant findings.
== END 2021-12-10 06:54 | disposition home or self-care (01) ==
LOC: RAD 06:55
PROVIDERS: PCP Family Medicine; Visit Provider Obstetrics & Gynecology
DX: R10.2 Pelvic and perineal pain (principal); G89.29 Other chronic pain; Z90.710 Acquired absence of both cervix and uterus
CPT/HCPCS: 76830; 76856

== ENCOUNTER → 2022-01-27 15:01 | Outpatient (BNVA) | payer BC, MEDICAID, SELFPAY | PROVIDERS: PCP Family Medicine; Visit Provider Family Medicine | DX: N89.8 Other specified noninflammatory disorders of vagina (principal) | CPT/HCPCS: 87070; 87077; 87184; 87205; 87491; 87591; 87661 ==

== ENCOUNTER → 2022-02-19 14:17 | Outpatient (BNVA) | payer BC, MEDICAID, SELFPAY | PROVIDERS: PCP Family Medicine; Visit Provider Specialist | DX: G43.711 Chronic migraine without aura, intractable, with status migrainosus (principal) | CPT/HCPCS: 64615; J0585 ==

== ENCOUNTER 2022-07-09 17:19 | Emergency (ER) | payer BC, MEDICAID, SELFPAY ==
[2022-07-09 17:25] VITALS: BP 150/101; PULSE 76; RESP 16; TEMP 36.5; O2SAT 97; BMI 35.0
[2022-07-09] MEDS: sodium chloride 0.9% 1,000 ML 999 ML IV (18:54)
[2022-07-09] MEDS: diphenhydrAMINE 50 mg/mL SDV 1mL 25 MG IVP (18:55)
[2022-07-09] MEDS: metoclopramide 5 mg/mL SDV 2 mL IVP (18:55)
[2022-07-09] MEDS: dexamethasone 4 mg/mL INJ 8 MG IVP (18:55)
--- NOTE | 2022-07-09 19:10 | ED_ITS ---
HPI - Headache General: Chief Complaint: Headache Stated Complaint: Migraine Time Seen by Provider: 07/09/22 18:11 History of Present Illness: Patient is in today with complaints of migraine. She reports that she has had a migraine for the past 1 week. She reports that it feels like her typical headache except for it last longer than she typically has. She reports that it is frontal and both sides of her head often times it is frontal and just the left. She reports that it is not the worst headache of her life but it is up there. She rates her pain a 7 on a 0-to-10 scale. She denies any other associated neurologic changes. She does report sensitivity to light and sounds. She has used her home medications including Imitrex. She reports that she has been nauseous all day she just cannot seem to shake the headache. She reports that she has had to come into the ER in the past and has received a migraine cocktail which helped her tremendously. She does report that she has a major allergy to NSAIDs. She denies any possibility of . Associated symptoms: Reports nausea; Deny chest pain, confusion, fever(s) or vomiting Review of Systems Const: Denies: fever(s), chills or body aches Eyes: Reports: photophobia; Denies: change in vision or blurry vision Card: Denies: chest pain or palpitations Resp: Denies: dyspnea GI: Reports: nausea; Denies: abdominal pain or vomiting : Denies: flank pain, difficulty voiding or dysuria Neuro: Reports: headache(s); Denies: numbness in extremities, weakness in extremities, sensory changes, lack of coordination, difficulty walking, dizziness, confusion or Slurred speech present [facility] ED PFSH: Medical History Anxiety 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 Chronic low back pain Chronic pelvic pain in female Encounter for long-term (current) use of NSAIDs Encounter for long-term opiate analgesic use GERD (gastroesophageal reflux disease) Low back pain Status post hysteroscopy (01/24/20) [place], [place] Dr. David Wooten. Pre-op Diagnosis: Abnormal uterine bleeding: menorrhagia Post-op diagnosis: same Post-op Findings: Proliferative endometrium Procedure Done: Hysteroscopy with D&C. Endometrial ablation Surgical History H/O section H/O tubal ligation H/O: hysterectomy 11/20/2020- laparoscopic assisted vaginal hysterectomy, lysis of adhesions and cystoscopy performed by Dr. Wooten at [facility] History of cholecystectomy History of D&C History of hysteroscopy Hysteroscopy with D&C on 01/24/2020- performed by Dr. Wooten at [facility] History of tonsillectomy Family History Mother Migraine Thyroid condition Grandfather Migraine maternal Father Seizure Son Seizure Sister Heart disease Grandmother Ovarian cancer paternal, 50's Denies family history of Colon cancer Diabetes Clotting disorder Hyperlipidemia Breast cancer Anesthesia complication Bleeding disorder Hypertension Uterine cancer Stroke Social History Smoking and tobacco status: never smoked Alcohol intake: never History of recent travel: No Female Reproductive History: Date of last menstrual period: 08/09/20 Physical Exam Const: COMMON NORMALS: patient oriented x3 and alert OTHER: Patient is lying in the chair with her eyes closed shut tight. The lights are off in the room. She is holding her head. She is calm but in obvious pain Eye: COMMON NORMALS: Equal, round and reactive pupils present, EOMs intact bilaterally, conjunctivae normal and no scleral icterus CONJUNCTIVA: Yes conjunctivae normal PUPIL: Yes Equal, round and reactive pupils present OTHER: Positive for photophobia. Pupils equal and reactive 4 mm bilateral Neck/C-Spine: COMMON NORMALS: no JVD Resp: COMMON NORMALS: normal respiratory effort, No use of accessory muscles and clear to auscultation bilaterally AUSCULTATION: clear to auscultation bilaterally Cardio: COMMON NORMALS: no JVD, regular rate, regular rhythm, S1 normal heart sound present and S2 normal heart sound present RATE: regular rate RHYTHM: regular rhythm HEART SOUNDS: S1 normal heart sound present and S2 normal h eart sound present Neuro: COMMON NORMALS: patient oriented x3, CN's II-XII intact bilaterally, moves all extremities, no focal motor deficits and no sensory deficits noted SENSORIUM/ORIENTATION: Yes alert Course ED course: Patient asleep in chair with eyes closed. Arouses to soft verbal stimuli. Reports that her headache is improving somewhat. She rates it a 5 on a 0-to-10 scale now. IV fluids still infusing. We will continue to monitor closely Reevaluation(s): Reevaluation #1: 2030?patient's IV fluids are completed. She reports her pain is a 2 on a 0-to-10 scale. She reports that she is ready to be discharged to home. 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 Vital Signs: Vital signs: Vital Signs Temperature 97.7 F 07/09/22 17:25 Pulse Rate 76 07/09/22 17:25 Respiratory Rate 16 07/09/22 17:25 Blood Pressure 150/101 07/09/22 17:25 Pulse Oximetry 97 07/09/22 17:25 Oxygen Delivery Me thod 07/09/22 17:25 MDM - Headache Medical Decision Making Patient is in today for a migraine lasting a bit longer than her typical migraine but she states that she has had them last this long in the past. She reports this is not the worst headache of her life however she rates her pain a 7 on a 0-to-10 scale. Patient is allergic to NSAIDs. Gave her IV fluids with Decadron, Benadryl, Reglan. Patient reports excellent results with migraine cocktail administered today. Pain down to a 2 on a 0-to-10 scale. She reports that she has a driver trainee and is ready to be discharged home. Advised her to continue her medications at home as previously prescribed. Follow-up with your primary care provider. Return to the ER as needed for any new or worsening symptoms. Patient verbalized understanding of all instruction. All questions answered to satisfaction. Patient discharged stable condition Lab Data : 07/09/22 19:19 07/09/22 19:19 Laboratory Results WBC 10.4 10^3/uL (4.0-10.0) H 07/09/22 19:19 RBC 5.05 10^6/uL (4.1-5.3) 07/09/22 19:19 Hgb 14.4 g/dL (11.5-15.3) 07/09/22 19:19 Hct 43.7 % (37.0-47.0) 07/09/22 19:19 MCV 86.5 fl (81-99) 07/09/22 19:19 MCH 28.5 pg (28.0-34.0) 07/09/22 19:19 MCHC 33.0 g/dL (30.0-36.0) 07/09/22 19:19 RDW 13.2 % (12.1-15.1) 07/09/22 19:19 Plt Count 236 10^3/cmm (130-400) 07/09/22 19:19 MPV 10.0 fL (7.4-10.4) 07/09/22 19:19 Neut % (Auto) 80.7 % 07/09/22 19:19 Lymph % (Auto) 12.7 % 07/09/22 19:19 [place] % (Auto) 5.2 % 07/09/22 19:19 Eos % (Auto) 0.4 % 07/09/22 19:19 Baso % (Auto) 0.5 % 07/09/22 19:19 Neut # (Auto) 8.36 10^3/uL (1.8-7.7) H 07/09/22 19:19 Lymph # (Auto) 1.3 10^3/uL (0.8-4.8) 07/09/22 19:19 [place] # (Auto) 0.5 10^3/uL (0.2-0.9) 07/09/22 19:19 Eos # (Auto) 0.0 10^3/uL (0.0-0.8) 07/09/22 19:19 Baso # (Auto) 0.1 10^3/uL (0.0-0.1) 07/09/22 19:19 Nucleated RBC % (auto) 0 % 07/09/22 19:19 Nucleated RBCs # 0.0 /100WBC 07/09/22 19:19 Sodium 134 mmol/L (136-145) L 07/09/22 19:19 Potassium 3.8 mmol/L (3.5-5.1) 07/09/22 19:19 Chloride 101 mmol/L (98-107) 07/09/22 19:19 Carbon Dioxide 23 mmol/L (22-29) 07/09/22 19:19 Anion Gap 13.8 (5-19) 07/09/22 19:19 BUN 10 mg/dL (6-20) 07/09/22 19:19 Creatinine 0.5 mg/dL (0.5-0.9) 07/09/22 19:19 GFR Calculation 138.1 mL/min (90-130) H 07/09/22 19:19 Glucose 82 mg/dL (65-115) 07/09/22 19:19 Calculated Osmolality 276 mOsm/kg (285-295) L 07/09/22 19:19 Calcium 9.4 mg/dL (8.5-10.5) 07/09/22 19:19 Total Bilirubin 0.7 mg/dL (0.15-1.2) 07/09/22 19:19 AST 16 U/L (0-32) 07/09/22 19:19 ALT 17 U/L (0-33) 07/09/22 19:19 Alkaline Phosphatase 90 U/L (35-105) 07/09/22 19:19 Total Protein 7.8 g/dL (6.6-8.7) 07/09/22 19:19 Albumin 4.6 g/dL (3.5-5.2) 07/09/22 19:19 Globulin 3.2 g/dL (1.3-4.6) 07/09/22 19:19 Discharge Plan Discharge Patient Disposition: Home Clinical Impression: Migraine Condition: Stable Prescriptions: No Action betamethasone, augmented [Diprolene (augmented)] 0.05 % ointment 1 applic topical BID PRN (Reason: skin irritation) Qty: 50 0RF triamcinolone acetonide 0.1 % cream 1 applic topical BID 90 Days Qty: 454 1RF omeprazole 40 mg capsule,delayed release(DR/EC) 40 mg PO DAILY Qty: 90 1RF dihydroergotamine 0.5 mg/pump act. (4 mg/mL) spray,non-aerosol See Rx Instructions .ROUTE .COMPLEX Qty: 8 0RF Dose Instruction: USE 1 SPRAY IN EACH NOSTRIL AND REPEAT IN 15 MINUTES. TOTAL OF 4 SPRAYS PER DOSE Rx Instructions: USE 1 SPRAY IN EACH NOSTRIL AND REPEAT IN 15 MINUTES. TOTAL OF 4 SPRAYS PER DOSE tizanidine 4 mg tablet 4 mg PO BID PRN (Reason: muscle spasticity) 30 Days Qty: 60 2RF Mucinex 1,200 mg tablet extended release 12hr 1,200 mg PO BID Qty: 20 0RF amoxicillin-pot clavulanate 875-125 mg tablet 1 tab PO Q12H Qty: 20 0RF sumatriptan succinate 100 mg tablet See Rx Instructions .ROUTE .COMPLEX Qty: 9 1RF Dose Instruction: TAKE 1 TABLET BY MOUTH EVERY 2 HOURS NEEDEDFOR MIGRAINE HEADACHE Rx Instructions: TAKE 1 TABLET BY MOUTH EVERY 2 HOURS NEEDEDFOR MIGRAINE HEADACHE acetaminophen-codeine 300-60 mg tablet 1 tab PO Q6H PRN (Reason: pain) 30 Days Qty: 120 0RF Rx Instructions: Must last 30 days Discharge Orders: Discharge ED (Routine); Ordered 07/09/22 Ordered By: Lena Goncalves Referrals: Laurel Conde DO [Primary Care Provider] - Discharge Diet: Usual diet Discharge Activity: Resume usual activity Activity Restrictions/Additional Instructions: Make sure that you are staying well-hydrated at home. Use your home meds as previously prescribed. Follow-up with your primary care provider. Return to ER for any new or worsening symptoms. Coding Level of Care Code ED Preventative Maintenance Technician for David Fwd Exam Detailed
[2022-07-09 19:26] LABS: Basophils # 0.1 10^3/uL (0.0-0.1); Basophils % 0.5 %; Eosinophils % 0.4 %; Hematocrit 43.7 % (37.0-47.0); Hemoglobin 14.4 g/dL (11.5-15.3); Lymphocytes # 1.3 10^3/uL (0.8-4.8); Lymphocytes % 12.7 %; Mean Corpuscular Hemoglobin 28.5 pg (28.0-34.0); Mean Corpuscular Volume 86.5 fl (81-99); Monocytes # 0.5 10^3/uL (0.2-0.9); Monocytes % 5.2 %; Neutrophils # 8.36 10^3/uL (1.8-7.7); Neutrophils % 80.7 %; Nucleated Red Blood Cells % 0 %; Platelet Count 236 10^3/cmm (130-400); Red Blood Count 5.05 10^6/uL (4.1-5.3); Red Cell Distribution Width 13.2 % (12.1-15.1); White Blood Count 10.4 10^3/uL (4.0-10.0)
[2022-07-09 19:49] LABS: Alanine Aminotransferase 17 U/L (0-33); Albumin Level 4.6 g/dL (3.5-5.2); Alkaline Phosphatase 90 U/L (35-105); Anion Gap 13.8 (5-19); Aspartate Amino Transferase 16 U/L (0-32); Blood Urea Nitrogen 10 mg/dL (6-20); Calcium 9.4 mg/dL (8.5-10.5); Carbon Dioxide 23 mmol/L (22-29); Chloride 101 mmol/L (98-107); Globulin 3.2 g/dL (1.3-4.6); Glomerular Filtration Rate 138.1 mL/min (90-130); Glucose 82 mg/dL (65-115); Osmolality Calculated 276 mOsm/kg (285-295); Potassium 3.8 mmol/L (3.5-5.1); Sodium 134 mmol/L (136-145); Total Bilirubin 0.7 mg/dL (0.15-1.2); Total Protein 7.8 g/dL (6.6-8.7)
== END 2022-07-09 21:11 | disposition home or self-care (01) ==
PROVIDERS: Emergency Provider Nurse Practitioner Family; PCP Family Medicine
DX: G43.909 Migraine, unspecified, not intractable, without status migrainosus (principal)
CPT/HCPCS: 36415; 80053; 85025; 96361; 96374; 96375; 99284; J1100; J1200; J2765; J7030

== ENCOUNTER 2022-08-17 17:41 | Outpatient (CLI) | payer BC, MEDICAID, SELFPAY ==
--- NOTE | 2022-08-17 17:49 | XRR_ITS ---
PROCEDURE INFORMATION: Exam: XR Left Knee Exam date and time: 08/17/2022 5:53 PM Age: 37 years old Clinical indication: Injury or trauma; Other: Moving furniture-hit knee on bed; Blunt trauma; Injury date: Last week; Patient HX: Was moving furniture and hit left knee against. C/O pain lt knee superior and medial. ; Additional info: Left anterior knee pain TECHNIQUE: Imaging protocol: Radiologic exam of the Left knee. Views: 3 views. COMPARISON: No relevant prior studies available. FINDINGS: Bones/joints: No acute fracture. No dislocation. Normal bone mineralization. No joint effusion. Joint spaces are maintained. Small calcified enthesophyte at the quadriceps tendon insertion. Soft tissues: No soft tissue swelling. No radiopaque foreign body. XR/XR knee LT 3V* [id number] IMPRESSION: 1. No acute fracture of the left knee. Followup imaging recommended in 7-14 days if clinical concern for fracture persists. 2. Small calcified enthesophyte at the quadriceps tendon insertion.
== END 2022-08-17 17:42 | disposition home or self-care (01) ==
PROVIDERS: PCP Family Medicine; Visit Provider Family Medicine
DX: M25.562 Pain in left knee (principal)
CPT/HCPCS: 73562

== ENCOUNTER 2022-08-24 17:42 | Emergency (ER) | payer BC, MEDICAID, SELFPAY ==
[2022-08-24 17:47] VITALS: BP 144/104; PULSE 84; RESP 12; TEMP 36.8; O2SAT 99
--- NOTE | 2022-08-24 17:52 | ED_ITS ---
HPI - Extremity Problem General: Chief complaint: Extremity Injury, Lower Stated complaint: left knee pain Time Seen by Provider: 08/24/22 17:52 History of Present Illness: 37-year-old female comes in today with worsening/persistent pain to the left knee. 14 days ago patient had injured her knee when she was moving a bed. Patient reports feeling a pop in her knee. Patient has tenderness in the lateral femoral condyle of the knee. Patient had x-ray that showed no abnormality but recommended a repeat x-ray in 7 to 14 days from the 12th. Patient has been able to ambulate on the knee. Patient has a history of chronic pain, fibromyalgia, dyshidrotic eczema, anxiety disorder, irritable bowel syndrome. Patient appears nontoxic. Patient appears in mild pain at rest. Review of Systems Musc: Reports: extremity pain (Left knee pain) [facility] ED PFSH: Medical History Anxiety 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 Chronic low back pain Chronic pelvic pain in female Encounter for long-term (current) use of NSAIDs Encounter for long-term opiate analgesic use GERD (gastroesophageal reflux disease) Low back pain Status post hysteroscopy (01/24/20) [facility], [place], [place]. Dr. David Wooten. Pre-op Diagnosis: Abnormal uterine bleeding: menorrhagia Post-op diagnosis: same Post-op Findings: Proliferative endometrium Procedure Done: Hysteroscopy with D&C. Endometrial ablation Surgical History H/O section H/O tubal ligation H/O: hysterectomy 11/20/2020- laparoscopic assisted vaginal hysterectomy, lysis of adhesions and cystoscopy performed by Dr. Wooten at [facility] History of cholecystectomy History of D&C History of hysteroscopy Hysteroscopy with D&C on 01/24/2020- performed by Dr. Wooten at [facility] History of tonsillectomy Family History Mother Migraine Thyroid condition Grandfather Migraine maternal Father Seizure Son Seizure Sister Heart disease Grandmother Ovarian cancer paternal, 50's Denies family history of Colon cancer Diabetes Clotting disorder Hyperlipidemia Breast cancer Anesthesia complication Bleeding disorder Hypertension Uterine cancer Stroke Social History Smoking and tobacco status: never smoked Alcohol intake: never History of recent travel: No Female Reproductive History: Date of last menstrual period: 08/09/20 Physical Exam Const: COMMON NORMALS: alert HENMT: COMMON NORMALS: normocephalic HEAD & SCALP: normocephalic Neck/C-Spine: COMMON NORMALS: full ROM Resp: COMMON NORMALS: normal respiratory effort and clear to auscultation bilaterally AUSCULTATION: clear to auscultation bilaterally Cardio: COMMON NORMALS: regular rate and regular rhythm RATE: regular rate RHYTHM: regular rhythm GI: COMMON NORMALS: non-tender : COMMON NORMALS: Yes no CVA tenderness BLADDER/KIDNEY EXAM: Yes no CVA tenderness Back/Pelvis: COMMON NORMALS: no CVA tenderness Extremity: LEFT LOWER EXTREMITY: Yes knee joint (Tenderness along the joint line of the left femoral lateral condyle.) Left knee: Yes inspection, Yes palpation and Yes ROM Neuro: SENSORIUM/ORIENTATION: Yes alert Skin: COMMON NORMALS: turgor normal GENERAL SKIN EXAM: turgor normal Course Vital Signs: Vital signs: Vital Signs Temperature 98.2 F 08/24/22 17:47 Pulse Rate 84 08/24/22 17:47 Respiratory Rate 12 08/24/22 17:47 Blood Pressure 144/104 08/24/22 17:47 Pulse Oximetry 99 08/24/22 17:47 Oxygen Delivery Me thod 08/24/22 17:47 MDM - Extremity (Nontraumatic) Medical Decision Making 37-year-old female comes in today for injury to the left knee. Injury occurred approximately 2 weeks ago when she was moving a bed and felt a popping sensation in her knee. Patient reports persistent worsening pain to the left knee. On exam there is tenderness along the left lateral femoral condyle. Prior x-ray showed no abnormality. Differential diagnosis includes but not limited to fracture, meniscal injury, sprain, contusion. CT evaluation of the knee indicated no fracture or other obvious injury. Patient does have some calcification along the patellar tendon. Reviewed exam with patient with recommendations for follow-up with primary care for referral to orthopedics. Patient wanted referral to orthopedics, requested case management to assist with this follow-up due to persistent knee pain after injury. Otherwise, recommended continue with routine care and medication use. Lab Data Radiology Impressions Knee CT 08/24/22 18:01 IMPRESSION: 1. No acute fracture or dislocation noted. 2. If there is concern for internal derangement, an MRI may be considered. Discharge Plan Discharge Patient Disposition: Home Clinical Impression: Left anterior knee pain Condition: Stable Prescriptions: No Action tramadol 50 mg tablet 50 mg PO Q6H PRN (Reason: pain) 7 Days Qty: 30 0RF Emgality Syringe 120 mg/mL syringe 240 mg SUBCUT ONCE Qty: 2 0RF Rx Instructions: Loading dose Emgality Syringe 120 mg/mL syringe 120 mg SUBCUT ONCE Qty: 1 6RF triamcinolone acetonide 0.1 % cream 1 applic topical BID 90 Days Qty: 454 1RF omeprazole 40 mg capsule,delayed release(DR/EC) 40 mg PO DAILY Qty: 90 1RF tizanidine 4 mg tablet 4 mg PO BID PRN (Reason: muscle spasticity) 30 Days Qty: 60 2RF sumatriptan succinate 100 mg tablet See Rx Instructions .ROUTE .COMPLEX Qty: 9 1RF Dose Instruction: TAKE 1 TABLET BY MOUTH EVERY 2 HOURS NEEDEDFOR MIGRAINE HEADACHE Rx Instructions: TAKE 1 TABLET BY MOUTH EVERY 2 HOURS NEEDEDFOR MIGRAINE HEADACHE acetaminophen-codeine 300-60 mg tablet 1 tab PO Q6H PRN (Reason: pain) 30 Days Qty: 120 0RF Rx Instructions: Must last 30 days Discharge Orders: Discharge ED (Routine); Ordered 08/24/22 Ordered By: Noel Olivera Referrals: Laurel Conde DO [Primary Care Provider] - Patient Instructions: Pain Management Activity Restrictions/Additional Instructions: Follow-up with primary care or orthopedist for further evaluation and treatment. Use ice or heat for further pain relief. Continue with present medications otherwise. Coding Level of Care Code ED Contracting Engineer for Chg Fwd Exam Comprehensive
--- NOTE | 2022-08-24 18:01 | CTR_ITS ---
PROCEDURE INFORMATION: Exam: CT Left Lower Extremity Without Contrast, Knee Exam date and time: 08/24/2022 6:28 PM Age: 37 years old Clinical indication: Injury or trauma; Fall; Sprain or strain; Patella or knee; Left; Injury details: Injury 2 weeks ago, patient still unable to bear weight; Additional info: Injury, worsening pain TECHNIQUE: Imaging protocol: CT of the Left lower extremity without contrast was performed. Exam focused on the knee. Radiation optimization: All CT scans at this facility use at least one of these dose optimization techniques: automated exposure control; mA and/or kV adjustment per patient size (includes targeted exams where dose is matched to clinical indication); or iterative reconstruction. COMPARISON: CR XR knee LT 3V* [id number] 08/17/2022 5:53 PM RADIATION DOSE METRICS: Total DLP (mGy-cm): 277.34 FINDINGS: Bones/joints: No acute fracture or dislocation noted. No suspicious bone lesion is identified. Small upper patellar enthesophyte again seen. Soft tissues: Unremarkable. CT/CT knee LT wo con* [id number] IMPRESSION: 1. No acute fracture or dislocation noted. 2. If there is concern for internal derangement, an MRI may be considered.
--- NOTE | 2022-08-25 09:57 | DCPLANNER ---
Addendum entered by Karena Mas 09/01/22 13:43: rfid manager received the following message from the ortho clinic regarding follow up appointment: attempt made to contact patient - left vm and mailed letter to contact our clinic to schedule Original Note: rfid manager had message to schedule a follow up appointment for patient at ortho. rfid manager sent patients information to the front office staff at ortho. Patients information will be printed and reviewed. Clinic will call patient with appointment information.
== END 2022-08-24 19:28 | disposition home or self-care (01) ==
PROVIDERS: Emergency Provider Nurse Practitioner Family; PCP Family Medicine
DX: M25.562 Pain in left knee (principal)
CPT/HCPCS: 73700; 99284

== ENCOUNTER 2022-09-22 15:21 | Emergency (ER) | payer BC, MEDICAID, SELFPAY ==
[2022-09-22 15:27] VITALS: BP 140/95; PULSE 72; RESP 17; TEMP 36.7; O2SAT 97; BMI 34.0
--- NOTE | 2022-09-22 15:30 | W.ED.HA ---
HPI - Headache General: Chief Complaint: Headache Stated Complaint: headache Time Seen by Provider: 09/22/22 15:30 Source: patient Mode of arrival: ambulatory Limitations: no limitations History of Present Illness: Patient is a 37-year-old female with an extensive history of migraine headaches here for complaints of a migraine over the past day. She is currently rating her headache at a 7/10. She states her symptoms today are identical to previous migraines. She has tried multiple different medications for her migraine headaches. She sees Dr. Hanna for treatment of these. She was on Botox but no longer feels like these are working. She states she is working with her insurance to try to get approved to begin Emgality. MD elicited complaint: headache and migraine Pertinent past history: migraines Onset (ago): day(s) Onset description: gradually Exacerbating factors: light and noise Relieving factors: nothing Associated symptoms: Reports photophobia and sound sensitivity; Deny confusion, fever(s) or vomiting Treatments prior to arrival: none Review of Systems Const: Denies: fever(s) Eyes: Reports: photophobia; Denies: change in vision, blurry vision, blind spots, eye discomfort, floaters or seeing flashes GI: Denies: vomiting Musc: Denies: neck pain Neuro: Reports: headache(s); Denies: numbness in extremities, weakness in extremities, sensory changes, dizziness or confusion [facility] ED PFSH: Medical History Anxiety 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 Chronic low back pain Chronic pelvic pain in female Encounter for long-term (current) use of NSAIDs Encounter for long-term opiate analgesic use GERD (gastroesophageal reflux disease) Low back pain Status post hysteroscopy (01/24/20) [place], [place]. Dr. David Wooten. Pre-op Diagnosis: Abnormal uterine bleeding: menorrhagia Post-op diagnosis: same Post-op Findings: Proliferative endometrium Procedure Done: Hysteroscopy with D&C. Endometrial ablation Surgical History H/O section H/O tubal ligation H/O: hysterectomy 11/20/2020- laparoscopic assisted vaginal hysterectomy, lysis of adhesions and cystoscopy performed by Dr. Wooten at [facility] History of cholecystectomy History of D&C History of hysteroscopy Hysteroscopy with D&C on 01/24/2020- performed by Dr. Wooten at [facility] History of tonsillectomy Family History Mother Migraine Thyroid condition Grandfather Migraine maternal Father Seizure Son Seizure Sister Heart disease Grandmother Ovarian cancer paternal, 50's Denies family history of Colon cancer Diabetes Clotting disorder Hyperlipidemia Breast cancer Anesthesia complication Bleeding disorder Hypertension Uterine cancer Stroke Social History Smoking and tobacco status: never smoked Alcohol intake: never History of recent travel: No Female Reproductive History: Date of last menstrual period: 08/09/20 Physical Exam Const: COMMON NORMALS: patient oriented x3, no limitations, alert and well nourished GENERAL APPEARANCE: cooperative ORIENTATION/CONSCIOUSNESS: Yes awake, Yes oriented to person, Yes oriented to place and Yes oriented to time HENMT: COMMON NORMALS: normocephalic and atraumatic HEAD & SCALP: normal to inspection, normocephalic and atraumatic Eye: GENERAL EYE: appearance normal, both eyes and all related structures DIRECT OPHTHALMOSCOPY: Yes photophobia Neck/C-Spine: COMMON NORMALS: full ROM, no lymphadenopathy and no meningeal signs Resp: COMMON NORMALS: normal respiratory effort Neuro: PRESTON COMA SCALE: document GCS findings Preston coma scale eye opening: Spontaneous Preston coma scale verbal response: Orientated [place] coma scale motor response: Obey commands Ke[place] coma scale total score: 15 COMMON NORMALS: patient oriented x3, CN's II-XII intact bilaterally, moves all extremities, no focal motor deficits, no sensory deficits noted and gait normal SENSORIUM/ORIENTATION: Yes alert, Yes oriented to person, Yes oriented to place and Yes oriented to time MENINGEAL SIGNS: Yes no meningeal signs Skin: COMMON NORMALS: no rashes or lesions noted GENERAL SKIN EXAM: no rashes or lesions noted Course Vital Signs: Vital signs: Vital Signs Temperature 98.1 F 09/22/22 15:27 Pulse Rate 72 09/22/22 15:27 Respiratory Rate 17 09/22/22 15:27 Blood Pressure 140/95 09/22/22 15:27 Pulse Oximetry 97 09/22/22 15:27 Oxygen Delivery Me thod 09/22/22 15:27 MDM - Headache Medical Decision Making She was treated with IV fluids, Reglan, and DHE with good results/pain reduction of her headache. States she feels comfortable and would like to go home at this time. Recommend she continue to follow-up with Dr. Hanna for treatment of her migraines. Discharge Plan Discharge Patient Disposition: Home Clinical Impression: Migraine Qualifiers: Migraine type: without aura Status migrainosus presence: without status migrainosus Intractability: not intractable Qualified Code(s): G43.009 - Migraine without aura, not intractable, without status migrainosus Condition: Stable Prescriptions: No Action tramadol 50 mg tablet 50 mg PO Q6H PRN (Reason: pain) 7 Days Qty: 30 0RF triamcinolone acetonide 0.1 % cream 1 applic topical BID 90 Days Qty: 454 1RF omeprazole 40 mg capsule,delayed release(DR/EC) 40 mg PO DAILY Qty: 90 1RF tizanidine 4 mg tablet 4 mg PO BID PRN (Reason: muscle spasticity) 30 Days Qty: 60 2RF acetaminophen-codeine 300-60 mg tablet 1 tab PO Q6H PRN (Reason: pain) 30 Days Qty: 120 0RF Rx Instructions: Must last 30 days sumatriptan succinate 100 mg tablet See Rx Instructions .ROUTE .COMPLEX Qty: 9 1RF Dose Instruction: TAKE 1 TABLET BY MOUTH EVERY 2 HOURS NEEDEDFOR MIGRAINE HEADACHE Rx Instructions: TAKE 1 TABLET BY MOUTH EVERY 2 HOURS NEEDEDFOR MIGRAINE HEADACHE Emgality Syringe 120 mg/mL syringe 120 mg SUBCUT ONCE Qty: 1 6RF Emgality Syringe 120 mg/mL syringe 240 mg SUBCUT ONCE Qty: 2 0RF Rx Instructions: Loading dose Discharge Orders: Discharge ED (Routine); Ordered 09/22/22 Ordered By: Nicki De Referrals: Laurel Conde DO [Primary Care Provider] - Patient Instructions: Headache - Migraine (Adult) Coding Level of Care Code ED [employer] Supervisor for Chg Fwd Exam Detailed
[2022-09-22] MEDS: sodium chloride 0.9% 1,000 ML 999 ML IV (15:59)
[2022-09-22] MEDS: metoclopramide 5 mg/mL SDV 2 mL 10 MG IVP (15:59)
[2022-09-22] MEDS: dihydroergotamine 1 mg/mL Inj IVP (16:00)
[2022-09-22 16:54] VITALS: PULSE 88; RESP 17; O2SAT 98
== END 2022-09-22 16:54 | disposition home or self-care (01) ==
PROVIDERS: Emergency Provider Physician Assistant; PCP Family Medicine
DX: G43.009 Migraine without aura, not intractable, without status migrainosus (principal)
CPT/HCPCS: 96361; 96374; 96375; 99284; J1110; J2765; J7030

== ENCOUNTER → 2023-01-19 16:30 | Outpatient (BNVA) | payer BC, MEDICAID, SELFPAY | PROVIDERS: PCP Family Medicine; Visit Provider Family Medicine | DX: B02.29 Other postherpetic nervous system involvement (principal); Z13.6 Encounter for screening for cardiovascular disorders | CPT/HCPCS: 80053; 84443 ==

== ENCOUNTER → 2023-11-27 17:57 | Outpatient (BNVA) | payer BC, MEDICAID, SELFPAY | PROVIDERS: PCP Family Medicine; Visit Provider Emergency Medicine | DX: J06.9 Acute upper respiratory infection, unspecified (principal) | CPT/HCPCS: 87400 ==

== ENCOUNTER 2023-12-10 08:52 | Oncology outpatient (recurring) (ONCR) | payer BC, MEDICAID, SELFPAY ==
[2023-12-10 09:02] VITALS: BP 136/83; PULSE 92; RESP 16; TEMP 36.3; O2SAT 98
--- NOTE | 2023-12-10 09:09 | PC.NURSE ---
patient reports her pain level with migraine at 02/13, DHE protocol started
[2023-12-10] MEDS: diphenhydrAMINE 50 mg/mL SDV 1mL 25 MG IVP (09:12)
[2023-12-10] MEDS: ondansetron 2 mg/ML SDV 2 mL 4 MG IVP (09:17)
[2023-12-10] MEDS: dihydroergotamine 1 mg/mL Inj 0.5 MG IVP ×5 (09:31→11:15)
--- NOTE | 2023-12-10 10:01 | PC.NURSE ---
patient reports that her pain level with migraine is 5/10, next dose of DHE given.
--- NOTE | 2023-12-10 10:29 | PC.NURSE ---
patient reports pain level with migraine 5/10, next dose of DHE given to patient per protocol
--- NOTE | 2023-12-10 10:52 | PC.NURSE ---
patient reports pain level 5/10 with migraine, next dose of DHE given per protocol
--- NOTE | 2023-12-10 11:16 | PC.NURSE ---
patient reports pain level at 3/10 with migraine, next dose of DHE given per protocol
[2023-12-10 11:49] VITALS: BP 111/74; PULSE 73; RESP 16; TEMP 36.6; O2SAT 96
--- NOTE | 2023-12-10 11:49 | PC.NURSE ---
patient reports pain level at 3/10 with nausea at this time. patient requesting to stop DHE protocol and be discharged home.
== END 2024-01-04 23:59 | disposition home or self-care (01) ==
PROVIDERS: PCP Family Medicine; Visit Provider Specialist
DX: G43.711 Chronic migraine without aura, intractable, with status migrainosus (principal); Z53.9 Procedure and treatment not carried out, unspecified reason
CPT/HCPCS: 96374; 96375; J1110; J1200; J2405

== ENCOUNTER → 2024-07-03 18:03 | Outpatient (BNVA) | payer BC, MEDICAID, SELFPAY | PROVIDERS: PCP Family Medicine; Visit Provider Family Medicine | DX: R39.9 Unspecified symptoms and signs involving the genitourinary system (principal) | CPT/HCPCS: 81000 ==